=== PATIENT | female | born 1965 | race Caucasian/White ===

== ENCOUNTER → 2017-04-21 | Outpatient (CLI) | payer BC ==
[~2017-04-21] MED LIST: AC500T PO; ALBU17AE3 IH; ALBU8.5H4 IH; ALPR1T PO; ASP325T PO; ASP81TEC PO; ASPRIN; CILO100T PO; CIPR500T78 PO; CITA10TA PO; CYCL10TA9 PO; DAILY MULTIVIT1 EAC4 PO; DULO30CA PO; ENXP40I.4 SQ; FENO145T2 PO; FERR325C PO; FLUT1DIS26 IH; GBPN600T PO; GUAI100S PO; GUAI10SY4 PO; HYDR-2890 PO; HYDR-3583 PO; HYDR-91 PO; HYDR12.56 PO; IBP600T1 PO; IBUP-30 PO; IRON45TA2 PO; LVT.15T PO; MELO-195 PO; MELOXICAN PO; MULT-974 PO; NF-LOVAZAC PO; NRT25C PO; OSLT75CRX PO; OXC20TCR PO; OXYC20TA4 PO; POTA10CA43 PO; POTA10TA36 PO; PRM25T PO; PROP10TA8 PO; TIZA2CAP7 PO; TOPI50TA2 PO; TRAM50TA2 PO; ZLP10T PO; ZOLP10TA; ZOLP10TA5 PO
--- NOTE | 2017-04-21 12:19 | Diagnostic Imaging Report ---
INDICATION: Left foot injury. AP and lateral views of the left foot show no fracture, dislocation, or other acute abnormalities. IMPRESSION: Negative left foot. Dictated by: Dictated on workstation # [id number]
== END ==
LOC: RAD 11:48
DX: M79.672 Pain in left foot (principal)
CPT/HCPCS: 73620

== ENCOUNTER → 2017-04-21 | Outpatient (CLI) | payer BC ==
--- NOTE | 2017-04-21 12:48 | Diagnostic Imaging Report ---
INDICATION: Left ankle pain. 3 views of the left ankle show no fracture, dislocation, or other acute abnormalities. IMPRESSION: Negative left ankle. Dictated by: Dictated on workstation # [id number]
== END ==
LOC: RAD 10:31
DX: M25.572 Pain in left ankle and joints of left foot (principal)
CPT/HCPCS: 73610

== ENCOUNTER → 2017-05-19 | Outpatient (CLI) | payer BC ==
--- NOTE | 2017-05-19 20:50 | Diagnostic Imaging Report ---
Bilateral CC and right MLO projections diagnostic mammogram. INDICATION: Area of fullness in the central lateral aspect of the right breast and in the axillary region. The current study was also evaluated with a Computer Aided Detection (CAD) system. COMPARISON: 06/25/13. FINDINGS: There are bilateral retropectoral implants seen in a symmetric fashion. There is no mass, architectural distortion or suspicious cluster of calcification seen. IMPRESSION: No mammographic evidence of malignancy. Ultrasound evaluation pending. ACR BI-RADS Category 0: Incomplete. (Needs additional imaging evaluation). Result letter will be mailed to the patient. Note: At least 10% of breast cancer is not imaged by mammography. Dictated by: Dictated on workstation # [id number]
--- NOTE | 2017-05-19 22:04 | Diagnostic Imaging Report ---
Right breast ultrasound. INDICATION: Thickening in the axilla and outer aspect of the right breast. FINDINGS: The area of thickening in the right breast at 9 o'clock zone, 3 cm from the nipple area corresponds to a hypoechoic nonspecific lesion with circumscribed margins and no internal vascularity seen measuring 8 x 3 x 7 mm abutting the outer surface of the implant. Etiology is uncertain. However, the overall appearance and smooth margins is in favor of a benign etiology and could possibly related to area of scarring after the mastectomy and implant placement. The area of thickening in the axilla was also scanned with no underlying abnormality. IMPRESSION: Nonspecific 8 mm smoothly marginated hyperechoic lesion corresponding to the palpable area in the outer aspect of the right breast is favored to be benign, possibly a postsurgical scar. Followup with ultrasound in 6 months is recommended to ensure no adverse development. ACR BI-RADS Category 3: Probably benign findings. Dictated by: Dictated on workstation # [id number]
== END ==
LOC: RAD 08:11
DX: N63.11 Unspecified lump in the right breast, upper outer quadrant (principal)
CPT/HCPCS: 77066

== ENCOUNTER → 2017-06-09 | Outpatient (CLI) | payer BC ==
[~2017-06-09] MED LIST changes: +CATHETER FLUSH 10 ML SYR IV PRN; +IOHEXOL 350 MG/ML 100 ML (OMNIPAQUE 350) VIAL IV ONE; +NS 100 ML (IVPB) BAG IV ONE
--- NOTE | 2017-06-09 12:50 | Diagnostic Imaging Report ---
PROCEDURE: CT abdomen and pelvis with contrast. TECHNIQUE: Multiple contiguous axial images were obtained through the abdomen and pelvis after administration of intravenous contrast. INDICATION: Hematuria. Pelvic pain. 100 mL of Omnipaque 350 is administered intravenously. FINDINGS: The lung bases appear clear. Breast implants are also partially visualized. The liver demonstrates diffuse steatosis with no focal mass identified. The spleen is not enlarged. Cholecystectomy clips are seen. The adrenal glands and the pancreas appear unremarkable. The kidneys have symmetric enhancement and excretion. There is no hydronephrosis. The urinary bladder appears unremarkable. There is no significant free fluid or fluid collection in the abdomen or pelvis noted. There is suggestion of hysterectomy. Correlate with surgical history. There are prominent densities in the urethra. These could relate to a urethral diverticula containing stones. The appearance is similar to study from 11/29/2012. The abdominal aorta is normal in caliber. No para-aortic significantly enlarged lymph node is seen. No bowel obstruction. A few small diverticula are seen in the sigmoid colon with no evidence of diverticulitis. The appendix is not seen on this exam. There is a tiny indirect left-sided fat-containing inguinal hernia. The osseous structures appear grossly unremarkable. IMPRESSION: 1. High-density material is surrounding the urethra similar to 2013 exam. These could relate to stones within urethral diverticulum or possibly sequela to prior injury or surgery to the urethra. Correlate with history. 2. Tiny fat-containing indirect left inguinal hernia. Dictated by: Dictated on workstation # [id number]
== END ==
LOC: RAD 10:06
DX: N36.9 Urethral disorder, unspecified (principal); K40.90 Unilateral inguinal hernia, without obstruction or gangrene, not specified as recurrent
CPT/HCPCS: 74177

== ENCOUNTER → 2017-06-28 | Outpatient (CLI) | payer BC ==
[~2017-06-28] MED LIST changes: -CATHETER FLUSH 10 ML SYR IV PRN; -IOHEXOL 350 MG/ML 100 ML (OMNIPAQUE 350) VIAL IV ONE; -NS 100 ML (IVPB) BAG IV ONE
--- NOTE | 2017-06-28 13:09 | Diagnostic Imaging Report ---
INDICATION: Left renal calculus. COMPARISON: CT dated 06/09/2017. FINDINGS: Two frontal radiographic views of the abdomen were obtained. Small bowel loops are nondistended. There is no large collection of free intraperitoneal air. No unexpected radiopaque foreign bodies are seen. There are bulky calcifications projecting over the lower pelvis, midline. This corresponds to dystrophic calcifications seen on previously performed CT. Otherwise, no unexpected calculi are identified. Bony structures show no gross acute abnormalities. IMPRESSION: 1. Nonobstructive small bowel gas pattern. Dictated by: Dictated on workstation # [id number]
== END ==
LOC: RAD 12:41
PROVIDERS: ATTEND Urology
DX: N20.0 Calculus of kidney (principal)
CPT/HCPCS: 74000

== ENCOUNTER → 2017-09-25 | Outpatient (CLI) | payer BC ==
--- NOTE | 2017-09-25 16:46 | Diagnostic Imaging Report ---
CLINICAL INDICATION: Patient with cough for past month. EXAM: Chest x-ray PA and lateral views. COMPARISONS: Chest x-ray dated 09/05/2013. FINDINGS: Lungs/pleura: Lungs are clear. There is no pneumothorax. There is no pleural effusion. Mediastinum: Unremarkable. Pulmonary vasculature: Unremarkable. Heart: Unremarkable. Bones/extrathoracic soft tissue: Unremarkable. IMPRESSION: There is no radiographic evidence of acute cardiopulmonary process. Dictated by: Dictated on workstation # [id number]
== END ==
LOC: RAD 15:19
PROVIDERS: ATTEND Nurse Practitioner Family
DX: R05 Cough (principal)
CPT/HCPCS: 71046

== ENCOUNTER → 2017-10-09 | Outpatient (CLI) | payer BC ==
[~2017-10-09] MED LIST changes: +BARIUM SUSPENSION 105% (LIQUID POLIBAR PLUS) 240 ML/DOSE PO ONE; +BARIUM SUSPENSION 60% (LIQUID EZ PAQUE) 240 ML DOSE PO ONE
--- NOTE | 2017-10-09 12:48 | Diagnostic Imaging Report ---
INDICATION: Gastroesophageal reflux disease. TECHNIQUE: The patient ingested effervescent crystals as well as thin and thick barium and imaging of the esophagus, stomach, and proximal small bowel was performed. 1 minute and 50 seconds of fluoroscopy time was utilized. FINDINGS: The preprocedure chest is unremarkable. The heart size is normal. The lungs are clear. The esophagus has a smooth contour. No mass or stricture is identified. No gastroesophageal reflux is demonstrated. No significant hiatal hernia is seen. There is some mild generalized esophageal dysmotility. The stomach has a normal configuration. There is prompt emptying into the small bowel. The duodenal bulb is without deformity. IMPRESSION: Generalized esophageal dysmotility. No other significant abnormality is seen. Dictated by: Dictated on workstation # [id number]
== END ==
LOC: RAD 10:51
DX: K21.9 Gastro-esophageal reflux disease without esophagitis (principal); K22.4 Dyskinesia of esophagus
CPT/HCPCS: 74240

== ENCOUNTER → 2017-11-23 | Outpatient (CLI) | payer BC ==
[~2017-11-23] MED LIST changes: -BARIUM SUSPENSION 105% (LIQUID POLIBAR PLUS) 240 ML/DOSE PO ONE; -BARIUM SUSPENSION 60% (LIQUID EZ PAQUE) 240 ML DOSE PO ONE
--- NOTE | 2017-11-23 12:22 | Diagnostic Imaging Report ---
INDICATION: Rash on the right breast. Comparison is made with prior exam from 05/19/2017 and 06/25/2013. The current study was also evaluated with a Computer Aided Detection (CAD) system. Subpectoral right breast implant is noted. Implant contours remain smooth. No definite evidence of extracapsular rupture is seen. No mass or malignant appearing microcalcifications are identified. IMPRESSION: BI-RADS zero Stable right mammogram. No suspicious abnormality is seen. Patient is scheduled to undergo right breast ultrasound to further evaluate previously noted nodule at the 9 o'clock location. ACR BI-RADS Category 0: Incomplete. (Needs additional imaging evaluation). Result letter will be mailed to the patient. Note: At least 10% of breast cancer is not imaged by mammography. Dictated by: Dictated on workstation # [id number]
--- NOTE | 2017-11-23 13:45 | Diagnostic Imaging Report ---
INDICATION: Right breast lump. Patient presents for six-month followup. Correlation is made with prior exam from 05/19/2017. Sonographic interrogation of the 9 o'clock location of the right breast, 3 cm from the nipple was performed. The mixed echogenicity ovoid area adjacent to the implant remains stable at 7 mm x 3 mm x 8 mm. This remains indeterminate but most likely represents scarring. No suspicious features are seen. IMPRESSION: BI-RADS category 2 Stable right breast ultrasound. Patient should return in 6 months for bilateral screening mammography. ACR BI-RADS Category 2: Benign findings. Dictated by: Dictated on workstation # [id number]
== END ==
LOC: RAD 07:54
DX: N63.11 Unspecified lump in the right breast, upper outer quadrant (principal); N64.59 Other signs and symptoms in breast; Z98.82 Breast implant status

== ENCOUNTER 2018-06-20 05:52 | Outpatient (CLI) | payer BC ==
[~2018-06-20] VITALS: Ht 157.5 cm; Wt 76.7 kg
[2018-06-20] MEDS ORDERED: ZOLP10TA5 PO (15:05)
[2018-06-20] MEDS ORDERED: THYR60TA2 PO (15:05)
[2018-06-20] MEDS ORDERED: FLUO40CA PO (15:05)
[2018-06-20] MEDS ORDERED: ASPI-999 PO (15:05)
[2018-06-20] MEDS ORDERED: FENO200C PO (15:05)
[2018-06-20] MEDS ORDERED: ROSU10TA27 PO (15:05)
[2018-06-20] MEDS ORDERED: ALPR1TAB7 PO (15:05)
[2018-06-20] MEDS ORDERED: ACHD5005 PO (15:05)
[2018-06-20] MEDS ORDERED: BACL20TA PO (15:05)
[2018-06-20] MEDS ORDERED: TOPI100T11 PO (15:05)
== END 2018-06-20 15:07 | disposition home or self-care (01) ==
LOC: PREOP 05:52
PROVIDERS: ATTEND Surgery
DX: Z01.818 Encounter for other preprocedural examination (principal)

== ENCOUNTER 2018-06-27 09:01 | Day surgery (SDC) | payer BC ==
[~2018-06-27] VITALS: Ht 157.5 cm; Wt 76.7 kg
[~2018-06-27 09:01] MED LIST changes: +ACHD5005 PO; +ALPR1TAB7 PO; +ASPI-999 PO; +BACL20TA PO; +FENO200C PO; +FLUO40CA PO; +ROSU10TA27 PO; +THYR60TA2 PO; +TOPI100T11 PO
--- OUTSIDE RECORDS SUMMARY | 2018-06-27 09:07 | XMS REPORT | Continuity of Care Document ---
Author Author [facility] Organization [facility] Address Unknown Phone Unavailable Allergies Active Description Code Type Severity Reaction Onset Reported/Identified Relationship to Patient Clinical Status Yes cephalexin [id number] Drug Allergy Unknown N/A 11/15/2005 Yes erythromycin base [id number] Drug Allergy Unknown N/A 11/15/2005 Yes latex [id number] Drug Allergy Unknown N/A 06/20/2018 Yes Penicillins [id number] Drug Allergy Unknown RASH 06/20/2018 Medications There is no data. Problems Date Dx Coded Attending Type Code Diagnosis Diagnosed By 01/11/2010 Ot 041.7 PSEUDOMONAS INFECT NOS 01/11/2010 Ot 444.22 LOWER EXTREMITY EMBOLISM 01/11/2010 Ot 909.3 LATE EFF SURG /MED COMPL 01/11/2010 Ot 998.51 INFECTED POSTOP SEROMA 01/11/2010 Ot E849.7 ACCID IN RESIDENT INSTIT 01/11/2010 Ot E870.0 ACC CUT/HEM IN SURGERY 01/11/2010 Ot V43.65 KNEE JOINT REPLACEMENT STATUS 01/21/2010 Ot 041.7 01/21/2010 Ot 780.60 02/08/2010 Ot 444.22 02/08/2010 Ot 997.2 02/27/2010 Ot 285.1 AC POSTHEMORRHAG ANEMIA 02/27/2010 Ot 493.90 ASTHMA, UNSPECIFIED 02/27/2010 Ot 715.96 OSTEOARTHROS NOS-L/LEG 02/27/2010 Ot 996.74 OTH COMPL DUE TO OTH VASCULAR DEVICE,IMP 05/20/2010 Ot V43.65 05/20/2010 Ot V54.81 05/20/2010 Ot V57.1 06/09/2010 Ot 444.22 06/09/2010 Ot 493.90 06/09/2010 Ot 716.90 06/09/2010 Ot 729.1 06/09/2010 Ot V16.3 06/09/2010 Ot V16.41 06/09/2010 Ot V58.61 06/09/2010 Ot V58.69 10/20/2010 Ot 444.22 LOWER EXTREMITY EMBOLISM 10/20/2010 Ot 493.90 ASTHMA, UNSPECIFIED 10/20/2010 Ot 716.90 ARTHROPATHY NOS-UNSPEC 10/20/2010 Ot 729.1 MYALGIA AND MYOSITIS NOS 10/20/2010 Ot V16.3 FAMILY HX- BREAST MALIG 10/20/2010 Ot V16.41 FAM HX-MAL NEOP-OVARY 10/20/2010 Ot V58.61 ANTICOAGULANTS,LT,CURRENT USE 10/20/2010 Ot V58.69 OTH MED,LT, CURRENT USE 09/14/2011 Ot 285.9 ANEMIA NOS 09/14/2011 Ot V58.61 ANTICOAGULANTS,LT,CURRENT USE 02/07/2012 Ot 285.9 ANEMIA NOS 02/07/2012 Ot V58.61 ANTICOAGULANTS,LT,CURRENT USE 05/08/2012 Ot 285.9 ANEMIA NOS 05/08/2012 Ot V16.3 FAMILY HX- BREAST MALIG 05/08/2012 Ot V16.41 FAM HX-MAL NEOP-OVARY 05/08/2012 Ot V58.61 ANTICOAGULANTS,LT,CURRENT USE 04/26/2013 SASCHA ABERNATHY, VINOD Bynum Ot 368.2 DIPLOPIA 04/26/2013 VINOD CAICEDO MD Ot 780.4 DIZZINESS AND GIDDINESS 05/21/2013 NELLIE BOYER MD Ot 723.0 CERVICAL SPINAL STENOSIS 05/21/2013 NELLIE BOYER MD Ot 724.1 PAIN IN THORACIC SPINE 05/21/2013 NELLIE BOYER MD Ot 724.2 LUMBAGO 05/21/2013 NELLIE BOYER MD Ot V43.65 KNEE JOINT REPLACEMENT STATUS 05/21/2013 NELLIE BOYER MD Ot V57.1 PHYSICAL THERAPY NEC 09/08/2013 NELLIE BOYER MD Ot 276.8 HYPOPOTASSEMIA 09/08/2013 NELLIE BOYER MD Ot 285.9 ANEMIA NOS 09/08/2013 NELLIE BOYER MD Ot 487.1 FLU W RESP MANIFEST NEC 09/08/2013 NELLIE BOYER MD Ot V03.82 PROPHYLACTIC VACC AGAINST STREPTOCOCCUS 09/16/2014 Ot V76.12 09/16/2014 Ot 440.20 09/16/2014 Ot 440.4 09/16/2014 Ot V72.63 09/16/2014 Ot V72.81 09/16/2014 Ot V74.8 09/16/2014 Ot 285.9 09/16/2014 Ot V58.61 09/16/2014 Ot 444.22 09/16/2014 Ot 493.90 09/16/2014 Ot 716.90 09/16/2014 Ot 729.1 09/16/2014 Ot V16.3 09/16/2014 Ot V16.41 09/16/2014 Ot V58.61 09/16/2014 Ot 996.74 09/16/2014 Ot 444.22 09/16/2014 Ot 493.90 09/16/2014 Ot 716.90 09/16/2014 Ot 729.1 09/16/2014 Ot V16.3 09/16/2014 Ot V16.41 09/16/2014 Ot V58.61 09/16/2014 Ot V58.69 09/16/2014 Ot V76.12 09/16/2014 Ot 288.50 09/16/2014 Ot 444.22 09/16/2014 Ot 493.90 09/16/2014 Ot 716.90 09/16/2014 Ot 729.1 09/16/2014 Ot V16.3 09/16/2014 Ot V16.41 09/16/2014 Ot V58.61 09/16/2014 Ot V58.69 09/16/2014 Ot 793.89 09/16/2014 Ot V16.3 09/16/2014 Ot 611.72 09/16/2014 Ot 611.72 09/16/2014 Ot V72.63 09/16/2014 Ot V72.81 09/16/2014 Ot V74.8 09/16/2014 Ot 729.5 09/16/2014 Ot V12.51 09/16/2014 Ot V16.3 09/16/2014 Ot V76.12 09/16/2014 Ot 793.80 09/16/2014 Ot V16.3 09/16/2014 Ot 286.9 09/16/2014 Ot 443.9 09/16/2014 Ot V16.3 09/16/2014 Ot V58.66 09/16/2014 Ot V58.69 09/16/2014 Ot 443.9 09/16/2014 Ot 729.81 09/16/2014 Ot 782.3 09/16/2014 Ot 285.9 09/16/2014 Ot V16.3 09/16/2014 Ot V16.41 09/16/2014 Ot V58.61 09/16/2014 Ot 786.50 09/16/2014 Ot 789.06 09/16/2014 Ot 786.50 09/16/2014 Ot 789.06 09/16/2014 Ot V12.51 09/16/2014 Ot V12.71 09/16/2014 Ot V58.69 09/16/2014 Ot 789.05 09/16/2014 MERLIN ABERNATHY, NELLIE J Ot 244.9 09/16/2014 MERLIN ABERNATHY, NELLIE J Ot 336.9 09/16/2014 MERLIN ABERNATHY, [facility] Ot 722.10 09/16/2014 MERLIN ABERNATHY, [facility] Ot 722.11 09/16/2014 MERLIN ABERNATHY, [facility] Ot 793.89 09/16/2014 MERLIN ABERNATHY, [facility] Ot V16.3 09/16/2014 MERLIN ABERNATHY, NELLIE J Ot 244.9 09/25/2014 MERLIN ABERNATHY, [facility] Ot 440.20 09/25/2014 MERLIN ABERNATHY, [facility] Ot 440.4 09/25/2014 MERLIN ABERNATHY, [facility] Ot 729.5 09/25/2014 MERLIN ABERNATYH, [facility] Ot V12.51 10/02/2014 MERLIN ABERNATHY, [facility] Ot 729.5 10/02/2014 MERLIN ABERNATHY, [facility] Ot V12.51 10/09/2014 MERLIN ABERNATHY, [facility] Ot 440.20 10/09/2014 MERLIN ABERNATHY, [facility] Ot 440.4 10/09/2014 MERLIN ABERNATHY, [facility] Ot 729.5 10/09/2014 MERLIN ABERNATHY, NELLIE Lan Ot V12.51 11/18/2015 Ot 444.22 11/18/2015 Ot 493.90 11/18/2015 Ot 716.90 11/18/2015 Ot 729.1 11/18/2015 Ot V16.3 11/18/2015 Ot V16.41 11/18/2015 Ot V58.61 11/18/2015 Ot V58.69 11/18/2015 Ot V76.12 11/18/2015 Ot 288.50 11/18/2015 Ot 444.22 11/18/2015 Ot 493.90 11/18/2015 Ot 716.90 11/18/2015 Ot 729.1 11/18/2015 Ot V16.3 11/18/2015 Ot V16.41 11/18/2015 Ot V58.61 11/18/2015 Ot V58.69 11/18/2015 Ot 793.89 11/18/2015 Ot V16.3 11/18/2015 Ot 611.72 11/18/2015 Ot 611.72 11/18/2015 Ot V72.63 11/18/2015 Ot V72.81 11/18/2015 Ot V74.8 11/18/2015 Ot 729.5 11/18/2015 Ot V12.51 11/18/2015 Ot V16.3 11/18/2015 Ot V76.12 11/18/2015 Ot 793.80 11/18/2015 Ot V16.3 11/18/2015 Ot 286.9 11/18/2015 Ot 443.9 11/18/2015 Ot V16.3 11/18/2015 Ot V58.66 11/18/2015 Ot V58.69 11/18/2015 Ot 443.9 11/18/2015 Ot 729.81 11/18/2015 Ot 782.3 11/18/2015 Ot 285.9 11/18/2015 Ot V16.3 11/18/2015 Ot V16.41 11/18/2015 Ot V58.61 11/18/2015 Ot 786.50 11/18/2015 Ot 789.06 11/18/2015 Ot 786.50 11/18/2015 Ot 789.06 11/18/2015 Ot V12.51 11/18/2015 Ot V12.71 11/18/2015 Ot V58.69 11/18/2015 Ot 789.05 11/18/2015 MERLIN ABERNATHY, NELLIE [place] Ot 244.9 11/18/2015 MERLIN ABERNATHY, NELLIE [place] Ot 336.9 11/18/2015 MERLIN ABERNATHY, NELLIE [place] Ot 722.10 11/18/2015 MERLIN ABERNATHY, NELLIE [place] Ot 722.11 11/18/2015 MERLIN ABERNATHY, NELLIE [place] Ot 793.89 11/18/2015 MERLIN ABERNATHY, NELLIE [place] Ot V16.3 11/18/2015 MERLIN ABERNATHY, NELLIE [place] Ot 244.9 11/18/2015 MERLIN ABERNATHY, NELLIE [place] Ot 729.5 11/18/2015 MERLIN ABERNATHY, NELLIE [place] Ot V12.51 11/18/2015 MERLIN ABERNATHY, NELLIE [place] Ot 440.20 11/18/2015 MERLIN ABERNATHY, NELLIE [place] Ot 440.4 11/18/2015 MERLIN ABERNATHY, NELLIE [place] Ot 729.5 11/18/2015 MERLIN ABERNATHY, NELLIE [place] Ot V12.51 11/24/2015 Ot 444.22 11/24/2015 Ot 493.90 11/24/2015 Ot 716.90 11/24/2015 Ot 729.1 11/24/2015 Ot V16.3 11/24/2015 Ot V16.41 11/24/2015 Ot V58.61 11/24/2015 Ot V58.69 11/24/2015 Ot V76.12 11/24/2015 Ot 288.50 11/24/2015 Ot 444.22 11/24/2015 Ot 493.90 11/24/2015 Ot 716.90 11/24/2015 Ot 729.1 11/24/2015 Ot V16.3 11/24/2015 Ot V16.41 11/24/2015 Ot V58.61 11/24/2015 Ot V58.69 11/24/2015 Ot 793.89 11/24/2015 Ot V16.3 11/24/2015 Ot 611.72 11/24/2015 Ot 611.72 11/24/2015 Ot V72.63 11/24/2015 Ot V72.81 11/24/2015 Ot V74.8 11/24/2015 Ot 729.5 11/24/2015 Ot V12.51 11/24/2015 Ot V16.3 11/24/2015 Ot V76.12 11/24/2015 Ot 793.80 11/24/2015 Ot V16.3 11/24/2015 Ot 286.9 11/24/2015 Ot 443.9 11/24/2015 Ot V16.3 11/24/2015 Ot V58.66 11/24/2015 Ot V58.69 11/24/2015 Ot 443.9 11/24/2015 Ot 729.81 11/24/2015 Ot 782.3 11/24/2015 Ot 285.9 11/24/2015 Ot V16.3 11/24/2015 Ot V16.41 11/24/2015 Ot V58.61 11/24/2015 Ot 786.50 11/24/2015 Ot 789.06 11/24/2015 Ot 786.50 11/24/2015 Ot 789.06 11/24/2015 Ot V12.51 11/24/2015 Ot V12.71 11/24/2015 Ot V58.69 11/24/2015 Ot 789.05 11/24/2015 MERLIN ABERNATHY, NELLIE [place] Ot 244.9 11/24/2015 MERLIN ABERNATHY, NELLIE [place] Ot 336.9 11/24/2015 MERLIN ABERNATHY, NELLIE [place] Ot 722.10 11/24/2015 MERLIN ABERNATHY, NELLIE [place] Ot 722.11 11/24/2015 MERLIN ABERNATHY, NELLIE [place] Ot 793.89 11/24/2015 MERLIN ABERNATHY, NELLIE [place] Ot V16.3 11/24/2015 MERLIN ABERNATHY, NELLIE [place] Ot 244.9 11/24/2015 MERLIN ABERNATHY, NELLIE [place] Ot 729.5 11/24/2015 MERLIN ABERNATHY, NELLIE [place] Ot V12.51 11/24/2015 MERLIN ABERNATHY, NELLIE [place] Ot 440.20 11/24/2015 MERLIN ABERNATHY, NELLIE [place] Ot 440.4 11/24/2015 MERLIN ABERNATHY, NELLIE [place] Ot 729.5 11/24/2015 MERLIN ABERNATHY, NELLIE [place] Ot V12.51 01/07/2016 Ot 444.22 LOWER EXTREMITY EMBOLISM 01/07/2016 Ot 493.90 ASTHMA, UNSPECIFIED 01/07/2016 Ot 716.90 ARTHROPATHY NOS-UNSPEC 01/07/2016 Ot 729.1 MYALGIA AND MYOSITIS NOS 01/07/2016 Ot V16.3 FAMILY HX- BREAST MALIG 01/07/2016 Ot V16.41 FAM HX-MAL NEOP-OVARY 01/07/2016 Ot V58.61 ANTICOAGULANTS,LT,CURRENT USE 01/07/2016 Ot V58.69 OTH MED,LT, CURRENT USE 01/07/2016 Ot V76.12 OTH SCREEN MAMMO-MALIGN NEOPLASM OF PRANEETH 01/07/2016 Ot 288.50 LEUKOCYTOPENIA, UNSPECIFIED 01/07/2016 Ot 444.22 LOWER EXTREMITY EMBOLISM 01/07/2016 Ot 493.90 ASTHMA, UNSPECIFIED 01/07/2016 Ot 716.90 ARTHROPATHY NOS-UNSPEC 01/07/2016 Ot 729.1 MYALGIA AND MYOSITIS NOS 01/07/2016 Ot V16.3 FAMILY HX- BREAST MALIG 01/07/2016 Ot V16.41 FAM HX-MAL NEOP-OVARY 01/07/2016 Ot V58.61 ANTICOAGULANTS,LT,CURRENT USE 01/07/2016 Ot V58.69 OTH MED,LT, CURRENT USE 01/07/2016 Ot 793.89 OTH (ABN) FINDINGS ON RADIOLOGICAL EXAMI 01/07/2016 Ot V16.3 FAMILY HX- BREAST MALIG 01/07/2016 Ot 611.72 LUMP OR MASS IN BREAST 01/07/2016 Ot 611.72 LUMP OR MASS IN BREAST 01/07/2016 Ot V72.63 PRE- PROCEDURAL LABORATORY EXAMINATION 01/07/2016 Ot V72.81 EXAM-PRE- OPERATIVE CARDIOVASCULAR 01/07/2016 Ot V74.8 SCREEN- BACTERIAL DIS NEC 01/07/2016 Ot 729.5 PAIN IN LIMB 01/07/2016 Ot V12.51 HX-VENOUS THROMBOSIS EMBOLISM 01/07/2016 Ot V16.3 FAMILY HX- BREAST MALIG 01/07/2016 Ot V76.12 OTH SCREEN MAMMO-MALIGN NEOPLASM OF PRANEETH 01/07/2016 Ot 793.80 UNSPEC ABNORMAL MAMMOGRAM 01/07/2016 Ot V16.3 FAMILY HX- BREAST MALIG 01/07/2016 Ot 286.9 COAGULAT DEFECT NEC/NOS 01/07/2016 Ot 443.9 PERIPH VASCULAR DIS NOS 01/07/2016 Ot V16.3 FAMILY HX- BREAST MALIG 01/07/2016 Ot V58.66 LONG-TERM ( CURRENT) USE OF ASPIRIN 01/07/2016 Ot V58.69 OTH MED,LT, CURRENT USE 01/07/2016 Ot 443.9 PERIPH VASCULAR DIS NOS 01/07/2016 Ot 729.81 SWELLING OF LIMB 01/07/2016 Ot 782.3 EDEMA 01/07/2016 Ot 285.9 ANEMIA NOS 01/07/2016 Ot V16.3 FAMILY HX- BREAST MALIG 01/07/2016 Ot V16.41 FAM HX-MAL NEOP-OVARY 01/07/2016 Ot V58.61 ANTICOAGULANTS,LT,CURRENT USE 01/07/2016 Ot 786.50 CHEST PAIN NOS 01/07/2016 Ot 789.06 ABDOMINAL PAIN, EPIGASTRIC 01/07/2016 Ot 786.50 CHEST PAIN NOS 01/07/2016 Ot 789.06 ABDOMINAL PAIN, EPIGASTRIC 01/07/2016 Ot V12.51 HX-VENOUS THROMBOSIS EMBOLISM 01/07/2016 Ot V12.71 PERSONAL HISTORY OF PEPTIC ULCER DISEASE 01/07/2016 Ot V58.69 OTH MED,LT, CURRENT USE 01/07/2016 Ot 789.05 ABDOMINAL PAIN, PERIUMBILIC 01/07/2016 NELLIE BOYER MD Ot 244.9 HYPOTHYROIDISM NOS 01/07/2016 NELLIE BOYER MD Ot 336.9 SPINAL CORD DISEASE NOS 01/07/2016 NELLIE BOYER MD Ot 722.10 LUMBAR DISC DISPLACEMENT 01/07/2016 NELLIE BOYER MD Ot 722.11 THORACIC DISC DISPLACMNT 01/07/2016 NELLIE BOYER MD Ot 793.89 OTH (ABN) FINDINGS ON RADIOLOGICAL EXAMI 01/07/2016 NELLIE BOYER MD Ot V16.3 FAMILY HX-BREAST MALIG 01/07/2016 NELLIE BOYER MD Ot 244.9 HYPOTHYROIDISM NOS 01/07/2016 NELLIE BOYER MD Ot 729.5 PAIN IN LIMB 01/07/2016 NELLIE BOYER MD Ot V12.51 HX-VENOUS THROMBOSIS EMBOLISM 01/07/2016 NELLIE BOYER MD Ot 440.20 ATHEROSCLEROSIS [place] ARTERIES EXTREMIT 01/07/2016 NELLIE BOYER MD Ot 440.4 CHRONIC TOTAL OCCLUSION OF ARTERY OF THE 01/07/2016 NELLIE BOYER MD Ot 729.5 PAIN IN LIMB 01/07/2016 NELLIE BOYER MD Ot V12.51 HX-VENOUS THROMBOSIS EMBOLISM 09/16/2016 Ot 288.50 LEUKOCYTOPENIA, UNSPECIFIED 09/16/2016 Ot 444.22 LOWER EXTREMITY EMBOLISM 09/16/2016 Ot 493.90 ASTHMA, UNSPECIFIED 09/16/2016 Ot 716.90 ARTHROPATHY NOS-UNSPEC 09/16/2016 Ot 729.1 MYALGIA AND MYOSITIS NOS 09/16/2016 Ot V16.3 FAMILY HX- BREAST MALIG 09/16/2016 Ot V16.41 FAM HX-MAL NEOP-OVARY 09/16/2016 Ot V58.61 ANTICOAGULANTS,LT,CURRENT USE 09/16/2016 Ot V58.69 OTH MED,LT, CURRENT USE 09/16/2016 Ot 793.89 OTH (ABN) FINDINGS ON RADIOLOGICAL EXAMI 09/16/2016 Ot V16.3 FAMILY HX- BREAST MALIG 09/16/2016 Ot 611.72 LUMP OR MASS IN BREAST 09/16/2016 Ot 611.72 LUMP OR MASS IN BREAST 09/16/2016 Ot V72.63 PRE- PROCEDURAL LABORATORY EXAMINATION 09/16/2016 Ot V72.81 EXAM-PRE- OPERATIVE CARDIOVASCULAR 09/16/2016 Ot V74.8 SCREEN- BACTERIAL DIS NEC 09/16/2016 Ot 729.5 PAIN IN LIMB 09/16/2016 Ot V12.51 HX-VENOUS THROMBOSIS EMBOLISM 09/16/2016 Ot V16.3 FAMILY HX- BREAST MALIG 09/16/2016 Ot V76.12 OTH SCREEN MAMMO-MALIGN NEOPLASM OF PRANEETH 09/16/2016 Ot 793.80 UNSPEC ABNORMAL MAMMOGRAM 09/16/2016 Ot V16.3 FAMILY HX- BREAST MALIG 09/16/2016 Ot 286.9 COAGULAT DEFECT NEC/NOS 09/16/2016 Ot 443.9 PERIPH VASCULAR DIS NOS 09/16/2016 Ot V16.3 FAMILY HX- BREAST MALIG 09/16/2016 Ot V58.66 LONG-TERM ( CURRENT) USE OF ASPIRIN 09/16/2016 Ot V58.69 OTH MED,LT, CURRENT USE 09/16/2016 Ot 443.9 PERIPH VASCULAR DIS NOS 09/16/2016 Ot 729.81 SWELLING OF LIMB 09/16/2016 Ot 782.3 EDEMA 09/16/2016 Ot 285.9 ANEMIA NOS 09/16/2016 Ot V16.3 FAMILY HX- BREAST MALIG 09/16/2016 Ot V16.41 FAM HX-MAL NEOP-OVARY 09/16/2016 Ot V58.61 ANTICOAGULANTS,LT,CURRENT USE 09/16/2016 Ot 786.50 CHEST PAIN NOS 09/16/2016 Ot 789.06 ABDOMINAL PAIN, EPIGASTRIC 09/16/2016 Ot 786.50 CHEST PAIN NOS 09/16/2016 Ot 789.06 ABDOMINAL PAIN, EPIGASTRIC 09/16/2016 Ot V12.51 HX-VENOUS THROMBOSIS EMBOLISM 09/16/2016 Ot V12.71 PERSONAL HISTORY OF PEPTIC ULCER DISEASE 09/16/2016 Ot V58.69 OTH MED,LT, CURRENT USE 09/16/2016 Ot 789.05 ABDOMINAL PAIN, PERIUMBILIC 09/16/2016 MERLIN ABERNATHY, NELLIE [place] Ot 244.9 HYPOTHYROIDISM NOS 09/16/2016 MERLIN ABERNATHY, NELLIE [place] Ot 336.9 SPINAL CORD DISEASE NOS 09/16/2016 NELLIE BOYER MD Ot 722.10 LUMBAR DISC DISPLACEMENT 09/16/2016 NELLIE BOYER MD Ot 722.11 THORACIC DISC DISPLACMNT 09/16/2016 NELLIE BOYER MD Ot 793.89 OTH (ABN) FINDINGS ON RADIOLOGICAL EXAMI 09/16/2016 NELLIE BOYER MD Ot V16.3 FAMILY HX-BREAST MALIG 09/16/2016 NELLIE BOYER MD Ot 244.9 HYPOTHYROIDISM NOS 09/16/2016 NELLIE BOYER MD Ot 729.5 PAIN IN LIMB 09/16/2016 NELLIE BOYER MD Ot V12.51 HX-VENOUS THROMBOSIS EMBOLISM 09/16/2016 NELLIE BOYER MD Ot 440.20 ATHEROSCLEROSIS [place] ARTERIES EXTREMIT 09/16/2016 NELLIE BOYER MD Ot 440.4 CHRONIC TOTAL OCCLUSION OF ARTERY OF THE 09/16/2016 NELLIE BOYER MD Ot 729.5 PAIN IN LIMB 09/16/2016 NELLIE BOYER MD Ot V12.51 HX-VENOUS THROMBOSIS EMBOLISM 04/24/2017 AVIS ABERNATHY, MARIA VICTORIA Zelaya Ot M79.672 PAIN IN LEFT FOOT 04/27/2017 AVIS ABERNATHY, MARIA VICTORIA Zelaya Ot M79.672 PAIN IN LEFT FOOT 05/04/2017 AVIS ABERNATHY, MARIA VICTORIA Zelaya Ot M25.572 PAIN IN LEFT ANKLE AND JOINTS OF LEFT FO 05/04/2017 MARIA VICTORIA ALBARRAN MD Ot M79.672 PAIN IN LEFT FOOT 05/31/2017 AVIS ABERNATHY, MARIA VICTORIA Zelaya Ot N63.11 UNSPECIFIED LUMP IN THE RIGHT BREAST, UP 06/07/2017 Ot V16.3 FAMILY HX- BREAST MALIG 06/07/2017 Ot V76.12 OTH SCREEN MAMMO-MALIGN NEOPLASM OF PRANEETH 06/07/2017 Ot 793.80 UNSPEC ABNORMAL MAMMOGRAM 06/07/2017 Ot V16.3 FAMILY HX- BREAST MALIG 06/07/2017 Ot 286.9 COAGULAT DEFECT NEC/NOS 06/07/2017 Ot 443.9 PERIPH VASCULAR DIS NOS 06/07/2017 Ot V16.3 FAMILY HX- BREAST MALIG 06/07/2017 Ot V58.66 LONG-TERM ( CURRENT) USE OF ASPIRIN 06/07/2017 Ot V58.69 OTH MED,LT, CURRENT USE 06/07/2017 Ot 443.9 PERIPH VASCULAR DIS NOS 06/07/2017 Ot 729.81 SWELLING OF LIMB 06/07/2017 Ot 782.3 EDEMA 06/07/2017 Ot 285.9 ANEMIA NOS 06/07/2017 Ot V16.3 FAMILY HX- BREAST MALIG 06/07/2017 Ot V16.41 FAM HX-MAL NEOP-OVARY 06/07/2017 Ot V58.61 ANTICOAGULANTS,LT,CURRENT USE 06/07/2017 Ot 786.50 CHEST PAIN NOS 06/07/2017 Ot 789.06 ABDOMINAL PAIN, EPIGASTRIC 06/07/2017 Ot 786.50 CHEST PAIN NOS 06/07/2017 Ot 789.06 ABDOMINAL PAIN, EPIGASTRIC 06/07/2017 Ot V12.51 HX-VENOUS THROMBOSIS EMBOLISM 06/07/2017 Ot V12.71 PERSONAL HISTORY OF PEPTIC ULCER DISEASE 06/07/2017 Ot V58.69 OTH MED,LT, CURRENT USE 06/07/2017 Ot 789.05 ABDOMINAL PAIN, PERIUMBILIC 06/07/2017 MERLIN ABERNATHY, NELLIE [place] Ot 244.9 HYPOTHYROIDISM NOS 06/07/2017 MERLIN ABERNATHY, NELLIE [place] Ot 336.9 SPINAL CORD DISEASE NOS 06/07/2017 NELLIE BOYER MD Ot 722.10 LUMBAR DISC DISPLACEMENT 06/07/2017 NELLIE BOYER MD Ot 722.11 THORACIC DISC DISPLACMNT 06/07/2017 MERLIN ABERNATHY, NELLIE [place] Ot 793.89 OTH (ABN) FINDINGS ON RADIOLOGICAL EXAMI 06/07/2017 NELLIE BOYER MD Ot V16.3 FAMILY HX-BREAST MALIG 06/07/2017 NELLIE BOYER MD Ot 244.9 HYPOTHYROIDISM NOS 06/07/2017 NELLIE BOYER MD Ot 729.5 PAIN IN LIMB 06/07/2017 NELLIE BOYER MD Ot V12.51 HX-VENOUS THROMBOSIS EMBOLISM 06/07/2017 NELLIE BOYER MD Ot 440.20 ATHEROSCLEROSIS [place] ARTERIES EXTREMIT 06/07/2017 NELLIE BOYER MD Ot 440.4 CHRONIC TOTAL OCCLUSION OF ARTERY OF THE 06/07/2017 NELLIE BOYER MD Ot 729.5 PAIN IN LIMB 06/07/2017 NELLIE BOYER MD Ot V12.51 HX-VENOUS THROMBOSIS EMBOLISM 06/07/2017 AVIS ABERNATHY, MARIA VICTORIA Zelaya Ot M25.572 PAIN IN LEFT ANKLE AND JOINTS OF LEFT FO 06/07/2017 MARIA VICTORIA ALBARRAN MD Ot M79.672 PAIN IN LEFT FOOT 06/07/2017 MARIA VICTORIA ALBARRAN MD Ot N63.11 UNSPECIFIED LUMP IN THE RIGHT BREAST, UP 06/12/2017 MARIA VICTORIA ALBARRAN MD Ot K40.90 UNIL INGUINAL HERNIA, W/O OBST OR GANGR, 06/12/2017 MARIA VICTORIA ALBARRAN MD Ot N36.9 URETHRAL DISORDER, UNSPECIFIED 06/22/2017 MARIA VICTORIA ALBARRAN MD Ot K40.90 UNIL INGUINAL HERNIA, W/O OBST OR GANGR, 06/22/2017 MARIA VICTORIA ALBARRAN MD Ot N36.9 URETHRAL DISORDER, UNSPECIFIED 07/13/2017 FREDDIE ABERNATHY, ARTURO Vega Ot N20.0 CALCULUS OF KIDNEY 09/25/2017 NICHOLAS RANDALL N ADAPTIVE PHYSICAL EDUCATOR Ot R05 COUGH 10/06/2017 Ot 285.9 ANEMIA NOS 10/06/2017 Ot V16.3 FAMILY HX- BREAST MALIG 10/06/2017 Ot V16.41 FAM HX-MAL NEOP-OVARY 10/06/2017 Ot V58.61 ANTICOAGULANTS,LT,CURRENT USE 10/06/2017 Ot 786.50 CHEST PAIN NOS 10/06/2017 Ot 789.06 ABDOMINAL PAIN, EPIGASTRIC 10/06/2017 Ot 786.50 CHEST PAIN NOS 10/06/2017 Ot 789.06 ABDOMINAL PAIN, EPIGASTRIC 10/06/2017 Ot V12.51 HX-VENOUS THROMBOSIS EMBOLISM 10/06/2017 Ot V12.71 PERSONAL HISTORY OF PEPTIC ULCER DISEASE 10/06/2017 Ot V58.69 OTH MED,LT, CURRENT USE 10/06/2017 Ot 789.05 ABDOMINAL PAIN, PERIUMBILIC 10/06/2017 MERLIN ABERNATHY, NELLIE [place] Ot 244.9 HYPOTHYROIDISM NOS 10/06/2017 MERLIN ABERNATHY, NELLIE [place] Ot 336.9 SPINAL CORD DISEASE NOS 10/06/2017 MERLIN ABERNATHY, NELLIE [place] Ot 722.10 LUMBAR DISC DISPLACEMENT 10/06/2017 MERLIN ABERNATHY, NELLIE [place] Ot 722.11 THORACIC DISC DISPLACMNT 10/06/2017 MERLIN ABERNATHY, NELLIE [place] Ot 793.89 OTH (ABN) FINDINGS ON RADIOLOGICAL EXAMI 10/06/2017 NELLIE BOYER MD Ot V16.3 FAMILY HX-BREAST MALIG 10/06/2017 NELLIE BOYER MD Ot 244.9 HYPOTHYROIDISM NOS 10/06/2017 MERLIN ABERNATHY, NELLIE [place] Ot 729.5 PAIN IN LIMB 10/06/2017 NELLIE BOYER MD Ot V12.51 HX-VENOUS THROMBOSIS EMBOLISM 10/06/2017 NELLIE BOYER MD Ot 440.20 ATHEROSCLEROSIS [place] ARTERIES EXTREMIT 10/06/2017 NELLIE BOYER MD Ot 440.4 CHRONIC TOTAL OCCLUSION OF ARTERY OF THE 10/06/2017 NELLIE BOYER MD Ot 729.5 PAIN IN LIMB 10/06/2017 NLELIE BOYER MD Ot V12.51 HX-VENOUS THROMBOSIS EMBOLISM 10/06/2017 AVIS ABERNATHY, MARIA VICTORIA Zelaya Ot M25.572 PAIN IN LEFT ANKLE AND JOINTS OF LEFT FO 10/06/2017 MARIA VICTORIA ALBARRAN MD Ot M79.672 PAIN IN LEFT FOOT 10/06/2017 MARIA VICTORIA ALBARRAN MD Ot N63.11 UNSPECIFIED LUMP IN THE RIGHT BREAST, UP 10/06/2017 MARIA VICTORIA ALBARRAN MD Ot K40.90 UNIL INGUINAL HERNIA, W/O OBST OR GANGR, 10/06/2017 MARIA VICTORIA ALBARRAN MD Ot N36.9 URETHRAL DISORDER, UNSPECIFIED 10/06/2017 FREDDIE ABERNATHY, ARTURO Vega Ot N20.0 CALCULUS OF KIDNEY 10/06/2017 NICHOLAS RANDALL N ADAPTIVE PHYSICAL EDUCATOR Ot R05 COUGH 10/09/2017 MARIA VICTORIA ALBARRAN MD Ot K21.9 GASTRO-ESOPHAGEAL REFLUX DISEASE WITHOUT 10/09/2017 MARIA VICTORIA ALBARRAN MD Ot K22.4 DYSKINESIA OF ESOPHAGUS 10/27/2017 MARIA VICTORIA ALBARRAN MD Ot K21.9 GASTRO-ESOPHAGEAL REFLUX DISEASE WITHOUT 10/27/2017 MARIA VICTORIA ALBARRAN MD Ot K22.4 DYSKINESIA OF ESOPHAGUS 11/10/2017 Ot 786.50 CHEST PAIN NOS 11/10/2017 Ot 789.06 ABDOMINAL PAIN, EPIGASTRIC 11/10/2017 Ot 786.50 CHEST PAIN NOS 11/10/2017 Ot 789.06 ABDOMINAL PAIN, EPIGASTRIC 11/10/2017 Ot V12.51 HX-VENOUS THROMBOSIS EMBOLISM 11/10/2017 Ot V12.71 PERSONAL HISTORY OF PEPTIC ULCER DISEASE 11/10/2017 Ot V58.69 OTH MED,LT, CURRENT USE 11/10/2017 Ot 789.05 ABDOMINAL PAIN, PERIUMBILIC 11/10/2017 NELLIE BOYER MD Ot 244.9 HYPOTHYROIDISM NOS 11/10/2017 NELLIE BOYER MD Ot 336.9 SPINAL CORD DISEASE NOS 11/10/2017 NELLIE BOYER MD Ot 722.10 LUMBAR DISC DISPLACEMENT 11/10/2017 NELLIE BOYER MD Ot 722.11 THORACIC DISC DISPLACMNT 11/10/2017 NELLIE BOYER MD Ot 793.89 OTH (ABN) FINDINGS ON RADIOLOGICAL EXAMI 11/10/2017 NELLIE BOYER MD Ot V16.3 FAMILY HX-BREAST MALIG 11/10/2017 NELLIE BOYER MD Ot 244.9 HYPOTHYROIDISM NOS 11/10/2017 NELLIE BOYER MD Ot 729.5 PAIN IN LIMB 11/10/2017 NELLIE BOYER MD Ot V12.51 HX-VENOUS THROMBOSIS EMBOLISM 11/10/2017 NELLIE BOYER MD Ot 440.20 ATHEROSCLEROSIS [place] ARTERIES EXTREMIT 11/10/2017 NELLIE BOYER MD Ot 440.4 CHRONIC TOTAL OCCLUSION OF ARTERY OF THE 11/10/2017 NELLIE BOYER MD Ot 729.5 PAIN IN LIMB 11/10/2017 NELLIE BOYER MD Ot V12.51 HX-VENOUS THROMBOSIS EMBOLISM 11/10/2017 MARIA VICTORIA ALBARRAN MD Ot M25.572 PAIN IN LEFT ANKLE AND JOINTS OF LEFT FO 11/10/2017 MARIA VICTORIA ALBARRAN MD Ot M79.672 PAIN IN LEFT FOOT 11/10/2017 MARIA VICTORIA ALBARRAN MD Ot N63.11 UNSPECIFIED LUMP IN THE RIGHT BREAST, UP 11/10/2017 MARIA VICTORIA ALBARRAN MD Ot K40.90 UNIL INGUINAL HERNIA, W/O OBST OR GANGR, 11/10/2017 MARIA VICTORIA ALBARRAN MD Ot N36.9 URETHRAL DISORDER, UNSPECIFIED 11/10/2017 FREDDIE ABERNATHY, ARTURO Vega Ot N20.0 CALCULUS OF KIDNEY 11/10/2017 NICHOLAS RANDALL N ADAPTIVE PHYSICAL EDUCATOR Ot R05 COUGH 11/10/2017 MARIA VICTORIA ALBARRAN MD Ot K21.9 GASTRO-ESOPHAGEAL REFLUX DISEASE WITHOUT 11/10/2017 MARIA VICTORIA ALBARRAN MD Ot K22.4 DYSKINESIA OF ESOPHAGUS 11/10/2017 Ot 786.50 CHEST PAIN NOS 11/10/2017 Ot 789.06 ABDOMINAL PAIN, EPIGASTRIC 11/10/2017 Ot 786.50 CHEST PAIN NOS 11/10/2017 Ot 789.06 ABDOMINAL PAIN, EPIGASTRIC 11/10/2017 Ot V12.51 HX-VENOUS THROMBOSIS EMBOLISM 11/10/2017 Ot V12.71 PERSONAL HISTORY OF PEPTIC ULCER DISEASE 11/10/2017 Ot V58.69 OTH MED,LT, CURRENT USE 11/10/2017 Ot 789.05 ABDOMINAL PAIN, PERIUMBILIC 11/10/2017 NELLIE OBYER MD Ot 244.9 HYPOTHYROIDISM NOS 11/10/2017 NELLIE BOYER MD Ot 336.9 SPINAL CORD DISEASE NOS 11/10/2017 NELLIE BOYER MD Ot 722.10 LUMBAR DISC DISPLACEMENT 11/10/2017 NELLIE BOYER MD Ot 722.11 THORACIC DISC DISPLACMNT 11/10/2017 NELLIE BOYER MD Ot 793.89 OTH (ABN) FINDINGS ON RADIOLOGICAL EXAMI 11/10/2017 NELLIE BOYER MD Ot V16.3 FAMILY HX-BREAST MALIG 11/10/2017 NELLIE BOYER MD Ot 244.9 HYPOTHYROIDISM NOS 11/10/2017 NELLIE BOYER MD Ot 729.5 PAIN IN LIMB 11/10/2017 NELLIE BOYER MD Ot V12.51 HX-VENOUS THROMBOSIS EMBOLISM 11/10/2017 NELLIE BOYER MD Ot 440.20 ATHEROSCLEROSIS [place] ARTERIES EXTREMIT 11/10/2017 NELLIE BOYER MD Ot 440.4 CHRONIC TOTAL OCCLUSION OF ARTERY OF THE 11/10/2017 NELLIE BOYER MD Ot 729.5 PAIN IN LIMB 11/10/2017 NELLIE BOYER MD Ot V12.51 HX-VENOUS THROMBOSIS EMBOLISM 11/10/2017 AVIS ABERNATHY, MARIA VICTORIA Zelaya Ot M25.572 PAIN IN LEFT ANKLE AND JOINTS OF LEFT FO 11/10/2017 MARIA VICTORIA ALBARRAN MD Ot M79.672 PAIN IN LEFT FOOT 11/10/2017 MARIA VICTORIA ALBARRAN MD Ot N63.11 UNSPECIFIED LUMP IN THE RIGHT BREAST, UP 11/10/2017 MARIA VICTORIA ALBARRAN MD Ot K40.90 UNIL INGUINAL HERNIA, W/O OBST OR GANGR, 11/10/2017 MARIA VICTORIA ALBARRAN MD Ot N36.9 URETHRAL DISORDER, UNSPECIFIED 11/10/2017 FREDDIE ABERNATHY, ARTURO Vega Ot N20.0 CALCULUS OF KIDNEY 11/10/2017 NICHOLAS RANDALL APRN Ot R05 COUGH 11/10/2017 MARIA VICTORIA ALBARRAN MD Ot K21.9 GASTRO-ESOPHAGEAL REFLUX DISEASE WITHOUT 11/10/2017 MARIA VICTORIA ALBARRAN MD Ot K22.4 DYSKINESIA OF ESOPHAGUS 11/23/2017 Ot 786.50 CHEST PAIN NOS 11/23/2017 Ot 789.06 ABDOMINAL PAIN, EPIGASTRIC 11/23/2017 Ot 786.50 CHEST PAIN NOS 11/23/2017 Ot 789.06 ABDOMINAL PAIN, EPIGASTRIC 11/23/2017 Ot V12.51 HX-VENOUS THROMBOSIS EMBOLISM 11/23/2017 Ot V12.71 PERSONAL HISTORY OF PEPTIC ULCER DISEASE 11/23/2017 Ot V58.69 OTH MED,LT, CURRENT USE 11/23/2017 Ot 789.05 ABDOMINAL PAIN, PERIUMBILIC 11/23/2017 MERLIN ABERNATHY, NELLIE [place] Ot 244.9 HYPOTHYROIDISM NOS 11/23/2017 MERLIN ABERNATHY, NELLIE [place] Ot 336.9 SPINAL CORD DISEASE NOS 11/23/2017 NELLIE BOYER MD Ot 722.10 LUMBAR DISC DISPLACEMENT 11/23/2017 NELLIE BOYER MD Ot 722.11 THORACIC DISC DISPLACMNT 11/23/2017 NELLIE BOYER MD Ot 793.89 OTH (ABN) FINDINGS ON RADIOLOGICAL EXAMI 11/23/2017 NELLIE BOYER MD Ot V16.3 FAMILY HX-BREAST MALIG 11/23/2017 NELLIE BOYER MD Ot 244.9 HYPOTHYROIDISM NOS 11/23/2017 NELLIE BOYER MD Ot 729.5 PAIN IN LIMB 11/23/2017 NELLIE BOYER MD Ot V12.51 HX-VENOUS THROMBOSIS EMBOLISM 11/23/2017 NELLIE BOYER MD Ot 440.20 ATHEROSCLEROSIS [place] ARTERIES EXTREMIT 11/23/2017 NELLIE BOYER MD Ot 440.4 CHRONIC TOTAL OCCLUSION OF ARTERY OF THE 11/23/2017 NELLIE BOYER MD Ot 729.5 PAIN IN LIMB 11/23/2017 NELLIE BOYER MD Ot V12.51 HX-VENOUS THROMBOSIS EMBOLISM 11/23/2017 MARIA VICTORIA ALBARRAN MD Ot M25.572 PAIN IN LEFT ANKLE AND JOINTS OF LEFT FO 11/23/2017 MARIA VICTORIA ALBARRAN MD Ot M79.672 PAIN IN LEFT FOOT 11/23/2017 MARIA VICTORIA ALBARRAN MD Ot N63.11 UNSPECIFIED LUMP IN THE RIGHT BREAST, UP 11/23/2017 MARIA VICTORIA ALBARRAN MD Ot K40.90 UNIL INGUINAL HERNIA, W/O OBST OR GANGR, 11/23/2017 MARIA VICTORIA ALBARRAN MD Ot N36.9 URETHRAL DISORDER, UNSPECIFIED 11/23/2017 FREDDIE ABERNATHY, ARTURO Vega Ot N20.0 CALCULUS OF KIDNEY 11/23/2017 NICHOLAS RANDALL N ADAPTIVE PHYSICAL EDUCATOR Ot R05 COUGH 11/23/2017 MARIA VICTORIA ALBARRAN MD Ot K21.9 GASTRO-ESOPHAGEAL REFLUX DISEASE WITHOUT 11/23/2017 MARIA VICTORIA ALBARRAN MD Ot K22.4 DYSKINESIA OF ESOPHAGUS 11/23/2017 MARIA VICTORIA ALBARRAN MD Ot N63.11 UNSPECIFIED LUMP IN THE RIGHT BREAST, UP 11/23/2017 MARIA VICTORIA ALBARRAN MD Ot N64.59 OTHER SIGNS AND SYMPTOMS IN BREAST 11/23/2017 MARIA VICTORIA ALBARRAN MD Ot Z98.82 BREAST IMPLANT STATUS 11/29/2017 MARIA VICTORIA ALBARRAN MD Ot N63.11 UNSPECIFIED LUMP IN THE RIGHT BREAST, UP 11/29/2017 MARIA VICTORIA ALBARRAN MD Ot N64.59 OTHER SIGNS AND SYMPTOMS IN BREAST 11/29/2017 MARIA VICTORIA ALBARRAN MD Ot Z98.82 BREAST IMPLANT STATUS 12/06/2017 MARIA VICTORIA ALBARRAN MD Ot N63.11 UNSPECIFIED LUMP IN THE RIGHT BREAST, UP 12/06/2017 MARIA VICTORIA ALBARRAN MD Ot N64.59 OTHER SIGNS AND SYMPTOMS IN BREAST 12/06/2017 MARIA VICTORIA ALBARRAN MD Ot Z98.82 BREAST IMPLANT STATUS 06/21/2018 BENNETT ABERNATHY, PIO Ot Z01.818 ENCOUNTER FOR OTHER PREPROCEDURAL EXAMIN Procedures Code Description Performed By Performed On 86.04 OTHER SKIN SUBQ I D 01/06/2010 88.42 CONTRAST AORTOGRAM 01/06/2010 88.48 CONTRAST ARTERIOGRAM-LEG 01/06/2010 86.59 CLOSURE SKIN SUBCUTANEOUS NEC 01/09/2010 38.91 ARTERIAL CATHETERIZATION 02/12/2010 88.42 CONTRAST AORTOGRAM 02/12/2010 88.48 CONTRAST ARTERIOGRAM-LEG 02/12/2010 99.10 INJECT/INFUSE THROMBOLYTIC AGENT 02/12/2010 38.08 LOWER LIMB ARTERY INCIS 02/13/2010 38.91 ARTERIAL CATHETERIZATION 02/13/2010 38.93 VENOUS CATHETERIZATION NEC 02/13/2010 88.48 CONTRAST ARTERIOGRAM-LEG 02/13/2010 99.10 INJECT/INFUSE THROMBOLYTIC AGENT 02/13/2010 Results There is no data. Encounters ACCT No. Visit Date/Time Discharge Status Pt. Type Provider Facility Loc./Unit Complaint [id number] 06/20/2018 05:52:00 06/20/2018 15:07:00 DIS Outpatient PIO GUAJARDO MD [facility] PREOP COLONOSCOPY/EGD [id number] 11/23/2017 07:54:00 11/23/2017 23:59:59 CLS Outpatient MARIA VICTORIA ALBARRAN MD [facility] RAD RT BREAST LUMP [id number] 10/09/2017 10:51:00 10/09/2017 23:59:59 CLS Outpatient MARIA VICTORIA ALBARRAN MD [facility] RAD GASTROESOPHAGEAL REFLUX DISEASE WO ESOPHAGITIS [id number] 09/25/2017 15:19:00 09/25/2017 23:59:59 CLS Outpatient NICHOLAS RANDALL APRN [facility] RAD R05 [id number] 06/28/2017 12:41:00 06/28/2017 23:59:59 CLS Outpatient ARTURO FRAZIER MD [facility] RAD LT RENAL STONE [id number] 06/09/2017 10:06:00 06/09/2017 23:59:59 CLS Outpatient MARIA VICTORIA ALBARRAN MD [facility] RAD R10.32 LEFT LOWER QUADRANT PAIN [id number] 05/19/2017 08:11:00 05/19/2017 23:59:59 CLS Outpatient MARIA VICTORIA ALBARRAN MD [facility] RAD BREAST LUMP [id number] 04/21/2017 11:48:00 04/21/2017 23:59:59 CLS Outpatient MARIA VICTORIA ALBARRAN MD [facility] RAD M79.672 [id number] 04/21/2017 10:31:00 04/21/2017 23:59:59 CLS Outpatient MARIA VICTORIA ALBARRAN MD [facility] RAD M25.572 [id number] 09/24/2014 12:27:00 09/24/2014 23:59:59 CLS Outpatient NELLIE BOYER MD [facility] RAD DVT [id number] 09/24/2014 12:15:00 09/24/2014 23:59:59 CLS Preadmit NELLIE BOYER MD [facility] RAD [id number] 09/16/2014 14:10:00 09/16/2014 23:59:59 CLS Outpatient NELLIE BOYER MD [facility] RAD LEFT UPPER LEG PAIN, HX OF DVT [id number] 07/03/2014 13:31:00 07/03/2014 23:59:59 CLS Outpatient NELLIE BOYER MD [facility] RAD HYPOTHYROID, ENLARGED FIRM THYROID [id number] 09/05/2013 22:35:00 09/08/2013 14:15:00 DIS Inpatient NELLIE BOYER MD [facility] 4TH ANEMIA,HYPOKALEMIA, INFLUENTZA-LIKE ILLNESS [id number] 06/25/2013 13:34:00 06/25/2013 23:59:59 CLS Outpatient NELLIE BOYER MD [facility] RAD STRONG FAM HX OF BREAST CA, INVERTED NIPPLE, LUMP [id number] 03/29/2013 14:30:00 05/21/2013 08:42:00 DIS Outpatient NELLIE BOYER MD [facility] REHAB NECK,UPPER BACK,LUMBAR PAIN,CERVICAL STENOSIS [id number] 04/26/2013 14:37:00 04/26/2013 17:16:00 DIS Emergency VINOD CAICEDO MD [facility] ER MULTIPLE COMPLAINTS [id number] 04/04/2013 13:20:00 04/04/2013 23:59:59 CLS Outpatient [id number] 02/26/2013 08:06:00 02/26/2013 23:59:59 CLS Outpatient NELLIE BOYER MD [facility] RAD C SPINE UPPER BACK NECK ALEJANDRO, LOW BACK PAIN, [id number] 12/17/2012 13:08:00 12/17/2012 23:59:59 CLS Outpatient NELLIE BOYER MD [facility] RAD HYPOTHYROIDISM [id number] 06/27/2018 09:30:00 PEN Preadmit PIO GUAJARDO MD [facility] ENDO SCREENING/EPIGASTRIC PAIN [id number] 06/20/2018 14:48:00 Document Registration [id number] 06/20/2018 14:48:00 Document Registration [id number] 09/16/2014 14:10:00 Document Registration [id number] 09/16/2014 14:10:00 Document Registration [id number] 11/29/2012 08:09:00 Document Registration [id number] 10/26/2012 10:09:00 Document Registration [id number] 10/24/2012 12:24:00 Document Registration [id number] 05/09/2012 00:00:00 Document Registration [id number] 02/16/2012 10:27:00 Document Registration [id number] 01/23/2012 08:34:00 Document Registration [id number] 01/19/2012 10:33:00 Document Registration [id number] 01/10/2012 08:43:00 Document Registration [id number] 12/29/2011 13:24:00 Document Registration [id number] 12/22/2011 10:11:00 Document Registration [id number] 10/26/2011 13:24:00 Document Registration [id number] 10/13/2011 05:39:00 Document Registration [id number] 10/06/2011 14:18:00 Document Registration [id number] 09/27/2011 11:54:00 Document Registration [id number] 09/02/2011 10:28:00 Document Registration [id number] 06/15/2011 09:14:00 Document Registration [id number] 02/16/2011 09:23:00 Document Registration [id number] 12/16/2010 10:43:00 Document Registration [id number] 08/19/2010 10:08:00 Document Registration [id number] 06/02/2010 09:13:00 Document Registration [id number] 05/20/2010 11:44:00 Document Registration [id number] 03/23/2010 14:00:00 Document Registration [id number] 03/04/2010 14:17:00 Document Registration [id number] 03/01/2010 10:08:00 Document Registration [id number] 02/12/2010 11:33:00 Document Registration [id number] 02/03/2010 05:43:00 Document Registration [id number] 01/27/2010 10:00:00 Document Registration [id number] 01/20/2010 10:14:00 Document Registration [id number] 01/03/2010 13:14:00 Document Registration [id number] 11/05/2009 09:22:00 Document Registration [id number] 09/24/2014 18:03:50 ACT Document Registration
[2018-06-27] MEDS ORDERED: MIDAZOLAM 2 MG/2 ML (VERSED) VIAL IVP ONE (09:15)
[2018-06-27] MEDS ORDERED: HURRICAINE EXT TUBE (BENZOCAINE) XX PRN (09:15)
[2018-06-27] MEDS ORDERED: fentaNYL INJECTION 100 MCG/2 ML AMP IVP ONE (09:15)
[2018-06-27] MEDS ORDERED: NS IV 500 ML 500 ML ONE ×2 (09:18→11:12)
[2018-06-27 09:20] VITALS: BP 125/75
[2018-06-27] MEDS: NS IV 500 ML 500 ML IV PRN ×2 (09:40→11:20)
[2018-06-27] MEDS ORDERED: fentaNYL INJECTION 100 MCG/2 ML AMP ONE ×2 (10:23→10:24)
[2018-06-27] MEDS ORDERED: MIDAZOLAM 2 MG/2 ML (VERSED) VIAL ONE ×5 (10:23→10:24)
[2018-06-27] MEDS ORDERED: LIDOCAINE JELLY 2% 6 ML SYRINGE ONE (10:23)
[2018-06-27] MEDS ORDERED: HURRICAINE EXT TUBE (BENZOCAINE) ONE (10:24)
--- NOTE | 2018-06-27 11:52 | Conscious Sedation/ASA ---
Conscious Sedation Pre-Proced Time 10:00 ASA Score 2 For ASA 3 and 4: Consider anesthesia and medical clearance. Also, for patients with a history of failed moderate sedation consider anesthesia. Airway Lungs Heart ASA score ASA 1: a normal healthy patient ASA 2: a patient with a mild systemic disease (mid diabetes, controlled hypertension, obesity ASA 3: a patient with a severe systemic disease that limits activity (angina , COPD, prior Myocardial infarction) ASA 4: a patient with an incapacitating disease that is a constant threat to life (CHF, renal failure) ASA 5: a moribund patient not expected to survive 24 hrs. (ruptured aneurysm) ASA 6: a declared brain patient whose organs are being harvested. For emergent operations, add the letter E after the classification Mallampati Classification Grade 2 Sedation Plan Analgesia, Amnesia, Plan communicated to team members, Discussed options with patient/fam, Discussed risks with patient/fam The patient is an appropriate candidate to undergo the planned procedure, sedation, and anesthesia. The patient immediately re-assessed prior to indication. PIO GUAJARDO MD Jun 27, 2018 11:52 am
--- NOTE | 2018-06-27 11:53 | Progress Note-Pre Operative ---
Pre-Operative Progress Note H&P Reviewed The H&P was reviewed, patient examined and no changes noted. Date Seen by Provider: Jun 27, 2018 Time Seen by Provider: 10:00 Date H&P Reviewed: Jun 27, 2018 Time H&P Reviewed: 10:00 Pre-Operative Diagnosis: GERD, dysphagia, screening colonoscopy PIO GUAJARDO MD Jun 27, 2018 11:53 am
--- NOTE | 2018-06-27 11:55 | Progress Note-Post Operative ---
Post-Operative Progess Note Surgeon (s)/Shirt Marker (s) Surgeon PIO GUAJARDO MD Shirt Marker: none Pre-Operative Diagnosis GERD, dysphagia, screening colonoscopy Post-Operative Diagnosis reflux esophagitis(stage 2), small-moderate hiatal hernia(2-2.5cm), mild gastritis. chronic stage 2 ext and int hemorrhoids. Procedure & Operative Findings Date of Procedure 06/27/18 Procedure Performed/Findings EGD with bx. Colonoscopy. Anesthesia Type CS Estimated Blood Loss Estimated blood loss (mL): minimal Specimens/Packing Specimens Removed GE jxn, antrum PIO GUAJARDO MD Jun 27, 2018 11:55 am
[2018-06-27] MEDS ORDERED: PANT40TA2 PO (11:56)
--- NOTE | 2018-06-27 11:57 | Discharge Inst-Surgical ---
D/C Lap Instructions-KIDO New, Converted, or Re-Newed RX: RX on Chart Follow Up Appt in 2 weeks Activity as tolerated High Fiber Diet 25g or more per day Avoid Alcohol, Caffeine, Spicy [place] and Acid foods. Drink 64 fluid oz or more of fluids per day. Symptoms to Report: Fever over 101 degree F, Nausea/Vomiting If any problems/questions: Contact your physician or go to Emergency Room PIO GUAJARDO MD Jun 27, 2018 11:57 am
[2018-06-27 12:20] VITALS: BP 111/62
[2018-06-27 12:50] VITALS: BP 117/68
--- NOTE | 2018-06-27 16:17 | OPERATIVE REPORT ---
DATE OF SERVICE: 06/27/2018 ATTENDING PHYSICIAN: Alfie Funes MD. PREOPERATIVE DIAGNOSES: Gastroesophageal reflux disease, dysphagia, and screening colonoscopy. POSTOPERATIVE DIAGNOSES: Reflux esophagitis, stage II; small to moderate size hiatal hernia, approximately 2 cm to 2.5 cm in size; and mild gastritis. No distal obstructions. Chronic stage II external and internal hemorrhoids. Remainder of the rectum and colon were normal. PROCEDURES PERFORMED: Esophagogastroduodenoscopy with biopsy, colonoscopy. SURGEON: Pio Guajardo MD. ANESTHESIA: Conscious sedation. ESTIMATED BLOOD LOSS: Minimal. FINDINGS: 1. EGD, reflux esophagitis, stage II, no ulcers or strictures, small to moderate size hiatal hernia, 2 cm to 2.5 cm in size. There was a mild severity gastritis. No formal ulcerations, polyps or any neoplasms. Pylorus and duodenum appeared normal with no distal obstructions. 2. Colonoscopy, chronic stage II external and internal hemorrhoids, not actively edematous nor inflamed and no bleeding. The remainder of the rectum and colon were normal. DISPOSITION: The patient tolerated the procedure well. INDICATIONS: The patient is a 53-year-old female with epigastric pain as well as dysphagia. She reports that she has had a history of crampy pain after taking in a food bolus and then would feel a pressure sensation and this would eventually resolve on its own. She does not report any regurgitation or andrew episodes of nausea, no vomiting. She states that this was initially very infrequent; however, has become more frequent over time. She also has noticed one episode of dark stools in 11/2017, which resolved on its own. She has not had a colonoscopy up to this point in her life. She reports for the most part, she is having normal bowel movements and does not report any red blood per rectum. DESCRIPTION OF PROCEDURE: The patient was brought to the operating room, laid supine on the table. After adequate IV pain and sedating medications and conscious sedation anesthesia, the mouthpiece was applied. The endoscope was placed in the mouth, visualizing the pharynx and hypopharyngeal region. Vocal cords, epiglottis and vallecula identified and appeared to be normal. The endoscope was then gently intubated in the esophageal opening and esophagus insufflated. The endoscope was then advanced through the first, second and third portion of the esophagus at the level of GE junction, a reflux esophagitis, stage II identified. There were no ulcerations or strictures identified in this region. The GE junction appeared to be intrathoracic consistent with a hiatal hernia as well. The endoscope was then advanced in the stomach and endoscope retroflexed, visualizing a hiatal hernia, which was small to moderate size approximately 2 cm to 2.5 cm in size. A mild severity gastritis was noted. There were no formal ulcerations, polyps or any neoplasms. A biopsy was taken of the stomach antrum with forceps with visualization of good hemostasis. The endoscope was then advanced to the pylorus and the first and second portion of the duodenum, which appeared normal. No distal obstructions. The patient tolerated this portion of the procedure well. We will await the biopsy results and await medical management. We feel that the etiology of her dysphagia is secondary to the hiatal hernia. If she continues to be symptomatic, we will recommend further evaluation for possible hiatal hernia repair, which would encompass an esophageal manometry study to rule out any esophageal dysmotility disorders. In the meantime, we will continue with an acid reduction therapy with Protonix and have her take in small and more frequent meals, avoidance of eating at night as well as head elevation while lying supine and she also needs to avoid caffeinated beverages, spicy, greasy and acidic foods. Under the same anesthesia, we then proceeded with the colonoscopy portion of procedure. A digital rectal examination was performed, which revealed chronic stage II external and internal hemorrhoids, not actively edematous nor inflamed and no bleeding. Normal sphincter tone was felt and there were no palpable masses. The endoscope was then intubated into the anus and rectum gently insufflated. The endoscope was then advanced to the valves of Thomas of the rectum with no polyps or any neoplasms identified. We then proceeded through the sigmoid colon where no diverticulosis identified. The endoscope was then advanced through the remainder of the descending, transverse and ascending colon to the cecum. These segments were normal as well. There were no polyps or any neoplasms identified. The endoscope was then slowly withdrawn while taking a second look and suctioning of residual air with no additional findings. The patient tolerated the procedure well. We will recommend continued medical management with a high fiber diet with at least 25 grams of fiber per day as well as 64 fluid ounces of water daily to promote soft stools on a daily basis. She does not need another colonoscopy for another 10 years. Job ID: [id number] DocumentID: [id number] Dictated Date: 06/27/2018 11:50:30 Manager Music Date: 06/27/2018 16:16:35 Dictated By: PIO GUAJARDO MD
== END 2018-06-27 13:15 | disposition home or self-care (01) ==
LOC: ENDO 09:01
PROVIDERS: ATTEND Surgery
DX: Z12.11 Encounter for screening for malignant neoplasm of colon (principal); K21.0 Gastro-esophageal reflux disease with esophagitis; K44.9 Diaphragmatic hernia without obstruction or gangrene; K29.70 Gastritis, unspecified, without bleeding; K64.1 Second degree hemorrhoids; E06.3 Autoimmune thyroiditis; E78.00 Pure hypercholesterolemia, unspecified; Z86.718 Personal history of other venous thrombosis and embolism; Z79.82 Long term (current) use of aspirin; Z79.899 Other long term (current) drug therapy

== ENCOUNTER 2018-08-02 12:03 | Outpatient (CLI) | payer BC ==
[~2018-08-02] VITALS: Ht 157.5 cm; Wt 76.7 kg
[~2018-08-02 12:03] MED LIST changes: +PANT40TA2 PO
[2018-08-03] MEDS ORDERED: HYDR-34 PO (09:52)
== END 2018-08-02 12:43 | disposition home or self-care (01) ==
LOC: PREOP 12:03
PROVIDERS: ATTEND Surgery
DX: Z01.818 Encounter for other preprocedural examination (principal)

== ENCOUNTER 2018-08-03 09:06 | Day surgery (SDC) | payer BC ==
[~2018-08-03] VITALS: Ht 157.5 cm; Wt 76.9 kg
[2018-08-03 09:20] VITALS: BP 134/72
--- OUTSIDE RECORDS SUMMARY | 2018-08-03 09:28 | XMS REPORT | Continuity of Care Document ---
Author Author [facility] Organization [facility] Address Unknown Phone Unavailable Allergies Active Description Code Type Severity Reaction Onset Reported/Identified Relationship to Patient Clinical Status Yes cephalexin [id number] Drug Allergy Unknown N/A 11/15/2005 Yes erythromycin base [id number] Drug Allergy Unknown N/A 06/27/2018 Yes latex [id number] Drug Allergy Unknown N/A 06/27/2018 Yes Penicillins [id number] Drug Allergy Unknown RASH 06/27/2018 Medications There is no data. Problems Date [...] NELLIE J Ot 336.9 09/16/2014 [facility] AB[facility]ATHY[facility] Ot 722.10 09/16/2014 [facility] Ot 722.11 09/16/2014 [facility], [facility] Ot 793.89 09/16/2014 [facility], [facility] Ot V16.3 09/16/2014 MERLIN ABERNATHY, NELLIE J Ot 244.9 09/25/2014 [facility] AB[facility]ATH[facility], [facility] Ot 440.20 09/25/2014 [facility] AB[facility]ATH[facility], [facility] Ot 440.4 09/25/2014 [facility] AB[facility]ATH[facility], [facility] Ot 729.5 09/25/2014 [facility] AB[facility]ATH[facility], [facility] Ot V12.51 10/02/2014 [facility] ABERNATHY, [facility] Ot 729.5 10/02/2014 [facility] AB[facility]ATH[facility], [facility] Ot V12.51 10/09/2014 [facility] AB[facility]ATH[facility], [facility] Ot 440.20 10/09/2014 [facility] Ot 440.4 10/09/2014 [facility] Ot 729.5 10/09/2014 MERLIN ABERNATHY, NELLIE [...] 336.9 SPINAL CORD DISEASE NOS 01/07/2016 NELLIE BYOER MD Ot 722.10 LUMBAR DISC DISPLACEMENT 01/07/2016 [...] 01/07/2016 NELLIE BOYER MD Ot 440.20 ATHEROSCLEROSIS MORONGO ARTERIES EXTREMIT 01/07/2016 NELLIE BOYER MD Ot [...] 09/16/2016 NELLIE BOYER MD Ot 440.20 ATHEROSCLEROSIS MORONGO ARTERIES EXTREMIT 09/16/2016 NELLIE BOYER MD Ot [...] 06/07/2017 NELLIE BOYER MD Ot 440.20 ATHEROSCLEROSIS MORONGO ARTERIES EXTREMIT 06/07/2017 NELLIE BOYER MD Ot [...] CALCULUS OF KIDNEY 09/25/2017 NICHOLAS RANDALL N [employer]ANIC Ot R05 COUGH 10/06/2017 Ot 285.9 ANEMIA [...] 10/06/2017 NELLIE BOYER MD Ot 440.20 ATHEROSCLEROSIS MORONGO ARTERIES EXTREMIT 10/06/2017 NELLIE BOYER MD Ot 440.4 CHRONIC TOTAL OCCLUSION OF ARTERY OF THE 10/06/2017 NELLIE BOYER MD Ot 729.5 PAIN IN LIMB 10/06/2017 NELLIE [...] CALCULUS OF KIDNEY 10/06/2017 NICHOLAS RANDALL N [employer]BI[employer] MECHANIC Ot R05 COUGH 10/09/2017 MARIA VICTORIA ALBARRAN [...] 11/10/2017 NELLIE BOYER MD Ot 440.20 ATHEROSCLEROSIS MORONGO ARTERIES EXTREMIT 11/10/2017 NELLIE BOYER MD Ot [...] CALCULUS OF KIDNEY 11/10/2017 NICHOLAS RANDALL N [employer]BI[employer] MECHANIC Ot R05 COUGH 11/10/2017 MARIA VICTORIA ALBARRAN [...] 11/10/2017 NELLIE BOYER MD Ot 440.20 ATHEROSCLEROSIS MORONGO ARTERIES EXTREMIT 11/10/2017 NELLIE BOYER MD Ot [...] Ot N36.9 URETHRAL DISORDER, UNSPECIFIED 11/10/2017 FREDDIE ABERNAHTY, ARTURO Vega Ot N20.0 CALCULUS OF KIDNEY [...] 11/23/2017 NELLIE BOYER MD Ot 440.20 ATHEROSCLEROSIS MORONGO ARTERIES EXTREMIT 11/23/2017 NELLIE BOYER MD Ot [...] CALCULUS OF KIDNEY 11/23/2017 NICHOLAS RANDALL N [employer] EQU[employer]MENT MECHANIC Ot R05 COUGH 11/23/2017 MARIA VICTORIA ALBARRAN [...] ALBARRAN MD Ot Z98.82 BREAST IMPLANT STATUS 06/20/2018 PIO GUAJARDO MD Ot Z01.818 ENCOUNTER FOR OTHER PREPROCEDURAL EXAMIN 06/21/2018 PIO GUAJARDO MD, Ot Z01.818 ENCOUNTER FOR OTHER PREPROCEDURAL EXAMIN 06/27/2018 PIO GUAJARDO MD Ot E06.3 AUTOIMMUNE THYROIDITIS 06/27/2018 PIO GUAJARDO MD Ot E78.00 PURE HYPERCHOLESTEROLEMIA, UNSPECIFIED 06/27/2018 PIO GUAJARDO MD Ot K21.0 GASTRO-ESOPHAGEAL REFLUX DISEASE WITH ES 06/27/2018 PIO GUAJARDO MD Ot K29.70 GASTRITIS, UNSPECIFIED, WITHOUT BLEEDING 06/27/2018 PIO GUAJARDO MD Ot K44.9 DIAPHRAGMATIC HERNIA WITHOUT OBSTRUCTION 06/27/2018 PIO GUAJARDO MD Ot K64.1 SECOND DEGREE HEMORRHOIDS 06/27/2018 PIO GUAJARDO MD Ot Z12.11 ENCOUNTER FOR SCREENING FOR MALIGNANT NE 06/27/2018 PIO GUAJARDO MD, Ot Z79.82 TRAIN CREW MEMBER (CURRENT) USE OF ASPIRIN 06/27/2018 PIO GUAJARDO MD Ot Z79.899 OTHER FPC (CURRENT) DRUG THERAPY 06/27/2018 PIO GUAJARDO MD, Ot Z86.718 PERSONAL HISTORY OF OTHER VENOUS THROMBO 06/29/2018 PIO GUAJARDO MD Ot E06.3 AUTOIMMUNE THYROIDITIS 06/29/2018 PIO GUAJARDO MD Ot E78.00 PURE HYPERCHOLESTEROLEMIA, UNSPECIFIED 06/29/2018 PIO GUAJARDO MD Ot K21.0 GASTRO-ESOPHAGEAL REFLUX DISEASE WITH ES 06/29/2018 PIO GUAJARDO MD Ot K29.70 GASTRITIS, UNSPECIFIED, WITHOUT BLEEDING 06/29/2018 PIO GUAJARDO MD Ot K44.9 DIAPHRAGMATIC HERNIA WITHOUT OBSTRUCTION 06/29/2018 PIO GUAJARDO MD Ot K64.1 SECOND DEGREE HEMORRHOIDS 06/29/2018 PIO GUAJARDO MD Ot Z12.11 ENCOUNTER FOR SCREENING FOR MALIGNANT NE 06/29/2018 PIO GUAJARDO MD, Ot Z79.82 FPC (CURRENT) USE OF ASPIRIN 06/29/2018 PIO GUAJARDO MD, Ot Z79.899 OTHER TRAIN CREW MEMBER (CURRENT) DRUG THERAPY 06/29/2018 PIO GUAJARDO MD, Ot Z86.718 PERSONAL HISTORY OF OTHER VENOUS THROMBO 07/31/2018 MERLIN ABERNATHY, NELLIE [place] Ot 336.9 SPINAL CORD DISEASE NOS 07/31/2018 NELLIE BOYER MD Ot 722.10 LUMBAR DISC DISPLACEMENT 07/31/2018 NELLIE BOYER MD Ot 722.11 THORACIC DISC DISPLACMNT 07/31/2018 NELLIE BOYER MD Ot 793.89 OTH (ABN) FINDINGS ON RADIOLOGICAL EXAMI 07/31/2018 NELLIE BOYER MD Ot V16.3 FAMILY HX-BREAST MALIG 07/31/2018 NELLIE BOYER MD Ot 244.9 HYPOTHYROIDISM NOS 07/31/2018 NELLIE BOYER MD Ot 729.5 PAIN IN LIMB 07/31/2018 NELLIE BOYER MD Ot V12.51 HX-VENOUS THROMBOSIS EMBOLISM 07/31/2018 NELLIE BOYER MD Ot 440.20 ATHEROSCLEROSIS MORONGO ARTERIES EXTREMIT 07/31/2018 NELLIE BOYER MD Ot 440.4 CHRONIC TOTAL OCCLUSION OF ARTERY OF THE 07/31/2018 NELLIE BOYER MD Ot 729.5 PAIN IN LIMB 07/31/2018 NELLIE BOYER MD Ot V12.51 HX-VENOUS THROMBOSIS EMBOLISM 07/31/2018 MARIA VICTORIA ALBARRAN MD Ot M25.572 PAIN IN LEFT ANKLE AND JOINTS OF LEFT FO 07/31/2018 MARIA VICTORIA ALBARRAN MD, Ot M79.672 PAIN IN LEFT FOOT 07/31/2018 MARIA VICTORIA ALBARRAN MD Ot N63.11 UNSPECIFIED LUMP IN THE RIGHT BREAST, UP 07/31/2018 MARIA VICTORIA ALBARRAN MD Ot K40.90 UNIL INGUINAL HERNIA, W/O OBST OR GANGR, 07/31/2018 MARIA VICTORIA ALBARRAN MD, Ot N36.9 URETHRAL DISORDER, UNSPECIFIED 07/31/2018 FREDDIE ABERNATHY, ARTURO Vega Ot N20.0 CALCULUS OF KIDNEY 07/31/2018 NICHOLAS RANDALL [employer] MECH[employer]IC Ot R05 COUGH 07/31/2018 MARIA VICTORIA ALBARRAN MD Ot K21.9 GASTRO-ESOPHAGEAL REFLUX DISEASE WITHOUT 07/31/2018 MARIA VICTORIA ALBARRAN MD Ot K22.4 DYSKINESIA OF ESOPHAGUS 07/31/2018 MARIA VICTORIA ALBARRAN MD, Ot N63.11 UNSPECIFIED LUMP IN THE RIGHT BREAST, UP 07/31/2018 MARIA VICTORIA ALBARRAN MD, Ot N64.59 OTHER SIGNS AND SYMPTOMS IN BREAST 07/31/2018 MARIA VICTORIA ALBARRAN MD, Ot Z98.82 BREAST IMPLANT STATUS 08/02/2018 BENNETT ABERNATHY, PIO Ot Z01.818 ENCOUNTER FOR [...] Status Pt. Type Provider Facility Loc./Unit Complaint [id number] 08/02/2018 12:03:00 08/02/2018 12:43:00 DIS Outpatient PIO GUAJARDO MD [facility] PREOP LEFT INGUINAL HERNIA/ EGD [id number] 06/27/2018 09:01:00 06/27/2018 13:15:00 DIS Outpatient PIO GUAJARDO MD [facility] ENDO SCREENING/EPIGASTRIC PAIN [id number] 06/20/2018 05:52:00 06/20/2018 15:07:00 DIS Outpatient PIO GUAJARDO MD [facility] PREOP COLONOSCOPY/EGD [id number] 11/23/2017 07:54:00 11/23/2017 23:59:59 CLS Outpatient MARIA VICTORIA ALBARRAN MD [facility] RAD RT BREAST LUMP [id number] 10/09/2017 10:51:00 10/09/2017 23:59:59 CLS Outpatient MARIA VICTORIA ALBARRAN MD [facility] RAD GASTROESOPHAGEAL REFLUX DISEASE WO ESOPHAGITIS [id number] 09/25/2017 15:19:00 09/25/2017 23:59:59 CLS Outpatient NICHOLAS RANDALL APRN [facility] RAD R05 [id number] 06/28/2017 12:41:00 06/28/2017 23:59:59 CLS Outpatient ARTURO FRAZIER MD [facility] RAD LT RENAL STONE [id number] 06/09/2017 10:06:00 06/09/2017 23:59:59 CLS Outpatient MARIA VICTORIA ALBARRAN MD [facility] RAD R10.32 LEFT LOWER QUADRANT PAIN [id number] 05/19/2017 08:11:00 05/19/2017 23:59:59 CLS Outpatient MARIA VICTORIA ALBARRAN MD [facility] RAD BREAST LUMP [id number] 04/21/2017 11:48:00 04/21/2017 23:59:59 CLS Outpatient MARIA VICTORIA ALBARRAN MD [facility] RAD M79.672 [id number] 04/21/2017 10:31:00 04/21/2017 23:59:59 CLS Outpatient AVIS ABERNATHY, MARIA VICTORIA Zelaya [facility] RAD M25.572 [id number] 09/24/2014 12:27:00 09/24/2014 23:59:59 CLS Outpatient NELLIE BOYER MD [facility] RAD DVT [id number] 09/24/2014 12:15:00 09/24/2014 23:59:59 CLS Preadmit NELLIE BOYER MD [facility] RAD [id number] 09/16/2014 14:10:00 09/16/2014 23:59:59 CLS Outpatient NELLIE BOYER MD [facility] RAD LEFT UPPER LEG PAIN, HX OF DVT [id number] 07/03/2014 13:31:00 07/03/2014 23:59:59 CLS Outpatient NELLIE BOYER MD [facility] RAD HYPOTHYROID, ENLARGED FIRM THYROID [id number] 09/05/2013 22:35:00 09/08/2013 14:15:00 DIS Inpatient NELLIE BOYER MD [facility] 4TH ANEMIA,HYPOKALEMIA, INFLUENTZA-LIKE ILLNESS [id number] 06/25/2013 13:34:00 06/25/2013 23:59:59 CLS Outpatient NELLIE BOYER MD [facility] RAD STRONG FAM HX OF BREAST CA, INVERTED NIPPLE, LUMP [id number] 03/29/2013 14:30:00 05/21/2013 08:42:00 DIS Outpatient NELLIE BOYER MD [facility] REHAB NECK,UPPER BACK,LUMBAR PAIN,CERVICAL STENOSIS [id number] 04/26/2013 14:37:00 04/26/2013 17:16:00 DIS Emergency VINOD CAICEDO MD [facility] ER MULTIPLE COMPLAINTS [id number] 04/04/2013 13:20:00 04/04/2013 23:59:59 CLS Outpatient [id number] 02/26/2013 08:06:00 02/26/2013 23:59:59 CLS Outpatient NELLIE BOYER MD [facility] RAD C SPINE UPPER BACK NECK ALEJANDRO, LOW BACK PAIN, [id number] 12/17/2012 13:08:00 12/17/2012 23:59:59 CLS Outpatient NELLIE BOYER MD [facility] RAD HYPOTHYROIDISM [id number] 08/03/2018 09:06:00 ACT Outpatient PIO GUAJARDO MD [facility] SDC INCISIONAL HERNIA, LEFT INGUINAL HERNIA / DYSHAGIA [id number] 06/20/2018 14:48:00 Document Registration [id number] 06/20/2018 14:48:00 Document Registration [id number] 09/16/2014 14:10:00 Document Registration [id number] 09/16/2014 14:10:00 Document Registration [id number] 11/29/2012 08:09:00 Document Registration [id number] 10/26/2012 10:09:00 Document Registration [id number] 10/24/2012 12:24:00 Document Registration [id number] 05/09/2012 00:00:00 Document Registration [id number] 02/16/2012 10:27:00 Document Registration [id number] 01/23/2012 08:34:00 Document Registration [id number] 01/19/2012 10:33:00 Document Registration [id number] 01/10/2012 08:43:00 Document Registration [id number] 12/29/2011 13:24:00 Document Registration [id number] 12/22/2011 10:11:00 Document Registration [id number] 10/26/2011 13:24:00 Document Registration [id number] 10/13/2011 05:39:00 Document Registration [id number] 10/06/2011 14:18:00 Document Registration [id number] 09/27/2011 11:54:00 Document Registration [id number] 09/02/2011 10:28:00 Document Registration [id number] 06/15/2011 09:14:00 Document Registration [id number] 02/16/2011 09:23:00 Document Registration [id number] 12/16/2010 10:43:00 Document Registration [id number] 08/19/2010 10:08:00 Document Registration [id number] 06/02/2010 09:13:00 Document Registration [id number] 05/20/2010 11:44:00 Document Registration [id number] 03/23/2010 14:00:00 Document Registration [id number] 03/04/2010 14:17:00 Document Registration [id number] 03/01/2010 10:08:00 Document Registration [id number] 02/12/2010 11:33:00 Document Registration [id number] 02/03/2010 05:43:00 Document Registration [id number] 01/27/2010 10:00:00 Document Registration [id number] 01/20/2010 10:14:00 Document Registration [id number] 01/03/2010 13:14:00 Document Registration [id number] 11/05/2009 09:22:00 Document Registration [id number] 09/24/2014 18:03:50 ACT Document Registration
[2018-08-03] MEDS ORDERED: CLINDAMYCIN 600 MG/50 ML IVPB 50 ML IV ONE (09:30)
[2018-08-03] MEDS ORDERED: BUP/EPI 0.5% 1:200,000 (SENSORCAINE) 30 ML VIAL ONE (09:35)
[2018-08-03] MEDS ORDERED: ONDANSETRON 4 MG/2 ML (SDV) Z0FRAN ONE (09:37)
[2018-08-03] MEDS ORDERED: fentaNYL INJECTION 100 MCG/2 ML AMP ONE (09:37)
[2018-08-03] MEDS ORDERED: LIDOCAINE PF 2% 5 ML (XYLOCAINE) VIAL ONE (09:37)
[2018-08-03] MEDS ORDERED: proPOfol 200 MG/20 ML (DIPRIVAN) VIAL IV ONE (09:37)
[2018-08-03] MEDS ORDERED: ROCURONIUM 10 MG/ML 5 ML SYRINGE IV ONE (09:37)
[2018-08-03] MEDS ORDERED: MIDAZOLAM 2 MG/2 ML (VERSED) VIAL ONE (09:38)
[2018-08-03] MEDS ORDERED: SEVOFLURANE (ULTANE) 15 ML INHAL SOLN ONE ×8 (09:41→12:01)
[2018-08-03] MEDS ORDERED: DEXAMETHASONE 10 MG/ML (DECADRON) 1 ML VIAL ONE (09:41)
--- NOTE | 2018-08-03 09:45 | Conscious Sedation/ASA ---
Conscious Sedation Pre-Proced Time 09:45 ASA Score 2 For ASA 3 and 4: Consider anesthesia and medical clearance. Also, for patients with a history of failed moderate sedation consider anesthesia. Airway Lungs Heart ASA score ASA 1: a normal healthy patient ASA 2: a patient with a mild systemic disease (mid diabetes, controlled hypertension, obesity ASA 3: a patient with a severe systemic disease that limits activity (angina , COPD, prior Myocardial infarction) ASA 4: a patient with an incapacitating disease that is a constant threat to life (CHF, renal failure) ASA 5: a moribund patient not expected to survive 24 hrs. (ruptured aneurysm) ASA 6: a declared brain patient whose organs are being harvested. For emergent operations, add the letter E after the classification Mallampati Classification Grade 2 Sedation Plan Analgesia, Amnesia, Plan communicated to team members, Discussed options with patient/fam, Discussed risks with patient/fam The patient is an appropriate candidate to undergo the planned procedure, sedation, and anesthesia. The patient immediately re-assessed prior to indication. PIO GUAJARDO MD Aug 03, 2018 09:45
--- NOTE | 2018-08-03 09:49 | Progress Note-Pre Operative ---
Pre-Operative Progress Note H&P Reviewed The H&P was reviewed, patient examined and no changes noted. Date Seen by Provider: Aug 03, 2018 Time Seen by Provider: 09:45 Date H&P Reviewed: Aug 03, 2018 Time H&P Reviewed: :45 Pre-Operative Diagnosis: reducible symptomatic incisional and left inguinal hernia. PIO GUAJAROD MD Aug 03, 2018 09:48
[2018-08-03] MEDS ORDERED: HYDR-34 PO (09:52)
--- NOTE | 2018-08-03 09:53 | Discharge Inst-Surgical ---
D/C Lap Instructions-BENNETT New, Converted, or Re-Newed RX: RX on Chart Follow Up Appt in 2 weeks Activity as tolerated No driving for 24 hours No driving while on pain medications sitz bath BID and PRN Incentive Spirometry use every 2 hours while awake Regular Diet Symptoms to Report: Fever over 101 degree F, Nausea/Vomiting Infection Signs and Symptoms to report: Increased redness, Foul odor of wound, Increased drainage Bathing instructions: May shower Operative Area Clean/Dry; Keep incision clean/dry If any problems/questions: Contact your physician or go to Emergency Room PIO GUAJARDO MD Aug 03, 2018 09:53
[2018-08-03] MEDS: LACTATED RINGERS 1,000 ML IV PRN ×2 (09:55→11:30)
[2018-08-03] MEDS ORDERED: morphine INJ 10 MG/ML 1ML (SYR OR VIAL) IVP PRN (10:00)
[2018-08-03] MEDS ORDERED: ONDANSETRON 4 MG/2 ML (SDV) Z0FRAN IVP PRN ×2 (10:00→13:00)
[2018-08-03] MEDS ORDERED: HYDROcodone/APAP 5 MG/325 MG (LORTAB) TAB PO ONE (10:00)
[2018-08-03] MEDS ORDERED: ACETAMINOPHEN 325 MG TABLET PO PRN (10:00)
[2018-08-03] MEDS ORDERED: SCOPOLAMINE 1.5 MG (TRANSDERM-SCOP) PATCH ONE (10:04)
[2018-08-03] MEDS ORDERED: FAMOTIDINE 20MG/2ML IV (PEPCID) ONE (10:04)
[2018-08-03 10:15] LABS: BASOPHILS % (AUTO) 0 % (0-10); EOSINOPHILS # (AUTO) 0.1 10^3/uL (0.0-0.3); EOSINOPHILS % (AUTO) 1 % (0-10); HEMATOCRIT 38 % (35-52); HEMOGLOBIN 12.7 G/DL (11.5-16.0); LYMPHOCYTES # (AUTO) 1.9 X 10^3 (1.0-4.0); LYMPHOCYTES % (AUTO) 37 % (12-44); MEAN CORPUSCULAR HEMOGLOBIN 30 PG (25-34); MEAN CORPUSCULAR HGB CONC 33 G/DL (32-36); MEAN CORPUSCULAR VOLUME 90 FL (80-99); MEAN PLATELET VOLUME 10.2 FL (7.4-10.4); MONOCYTES # (AUTO) 0.5 X 10^3 (0.0-1.0); MONOCYTES % (AUTO) 10 % (0-12); NEUTROPHILS # (AUTO) 2.6 X 10^3 (1.8-7.8); NEUTROPHILS % (AUTO) 52 % (42-75); PLATELET COUNT 284 10^3/uL (130-400); RED BLOOD COUNT 4.24 10^6/uL (4.35-5.85); RED CELL DISTRIBUTION WIDTH 13.9 % (10.0-14.5); WHITE BLOOD COUNT 5.1 10^3/uL (4.3-11.0)
[2018-08-03] MEDS ORDERED: SCOPOLAMINE 1.5 MG (TRANSDERM-SCOP) PATCH TOP ONE (11:15)
[2018-08-03] MEDS ORDERED: ONDANSETRON 4 MG/2 ML (SDV) Z0FRAN IV ONE (11:15)
[2018-08-03] MEDS ORDERED: FAMOTIDINE 20MG/2ML IV (PEPCID) IV ONE (11:15)
--- NOTE | 2018-08-03 12:38 | Progress Note-Post Operative ---
Post-Operative Progess Note Surgeon (s)/Auto Wrecker (s) Surgeon PIO GUAJARDO MD Auto Wrecker: none Pre-Operative Diagnosis reducible symptomatic incisional and left inguinal hernia. Post-Operative Diagnosis same. Procedure & Operative Findings Date of Procedure 08/03/18 Procedure Performed/Findings laparoscopic left indirect inguinal hernia repair with mesh. incisional hernia repair. EGD with bx and dilatation. Anesthesia Type GET Estimated Blood Loss Estimated blood loss (mL): minimal Specimens/Packing Specimens Removed GE jxn, antrum PIO GUAJARDO MD Aug 03, 2018 12:38
[2018-08-03] MEDS ORDERED: morphine INJ 10 MG/ML 1ML (SYR OR VIAL) IVP ONE (13:00)
[2018-08-03 13:40] VITALS: BP 107/60
[2018-08-03] MEDS ORDERED: HYDROcodone/APAP 5 MG/325 MG (LORTAB) TAB ONE (13:48)
[2018-08-03 14:10] VITALS: BP 99/57
[2018-08-03 14:40] VITALS: BP 106/62
[2018-08-03 15:17] VITALS: BP 106/62
--- NOTE | 2018-08-04 00:25 | OPERATIVE REPORT ---
DATE OF SERVICE: 08/03/2018 ATTENDING PRIMARY CARE PHYSICIAN: Alfie Funes MD PREOPERATIVE DIAGNOSES: Symptomatic left inguinal hernia, symptomatic epigastric incisional hernia, achalasia. POSTOPERATIVE DIAGNOSES: Small and indirect left inguinal hernia with preperitoneal fat within the hernia sac. Small incisional hernia from a previous trocar incision in the epigastric region. The ovaries appeared to be hypoplastic and solid in appearance. An intraoperative consultation was made with gynecology, which appeared to be normal physiologic. Reflux esophagitis stage II, achalasia, small hiatal hernia, mild to moderate gastritis. PROCEDURES: 1. Laparoscopic left inguinal hernia repair with mesh. 2. Laparoscopic ventral abdominal incisional hernia with mesh. 3. EGD with biopsy. 4. Balloon dilatation. SURGEON: Pio Guajardo MD ANESTHESIA: General endotracheal. ESTIMATED BLOOD LOSS: Minimal. FINDINGS: A small indirect left inguinal hernia with preperitoneal fat within the hernia sac. A small ventral abdominal incisional hernia from a previous trocar placement. Bilateral ovaries were apparent and appeared to be solid in appearance. An intraoperative consultation BINDER STRIPPER HAND was made, which appeared to be normal physiologic changes. Washings were sent for cytology. DISPOSITION: The patient tolerated the procedure well. INDICATIONS: The patient is a 53-year-old female with epigastric pain as well as dysphagia. She reports crampy abdominal pain after taking food bolus and fullness sensation , which were eventually resolved on its own. This was initially infrequent; however, worsened over time. EGD was performed, which did show a hiatal hernia approximately 2 cm in size as well as mild gastritis. Biopsies were negative for Martin esophagus as well as H. pylori. She eventually underwent an esophageal manometry study, which showed normal waveform contractions of the esophagus; however, increased tone of the lower esophageal sphincter for longer periods of time more consistent with an achalasia. She also has a symptomatic left inguinal hernia, which is reducible; however, tender to palpation. She also reports of development of an incisional hernia in the epigastric region from a previous trocar placement for laparoscopic surgery. These were both reducible; however, tender to palpation. DESCRIPTION OF PROCEDURE: The patient was brought to the operating room, laid supine on the table. After adequate IV pain and sedating medications, general endotracheal intubation, the abdomen was prepped and draped in standard surgical fashion. A 0.5% Marcaine with epinephrine was used to anesthetize the overlying skin in the infraumbilical rim and a small transverse skin incision made using a #15 blade. The abdominal wall was then retracted anteriorly and a Veress needle inserted with low opening pressure of 0 mmHg and the abdomen was insufflated to 15 mmHg pressure. The Veress needle removed and a 10 mm Xcel trocar placed followed by a 10 mm 45-degree angle laparoscope visualizing the peritoneal cavity. A 4-quadrant abdominal exploration was performed. There was a small left inguinal hernia identified, which appeared to be an indirect hernia. There was no right hernia component identified. There was a small incisional hernia identified in the epigastric region as well. The patient is status post hysterectomy in 2005 and she has bilateral ovary cysts as well as tubes. These appeared to be white and solid in appearance and it was decided to proceed with intraoperative consultation with BINDER STRIPPER HAND. However, the report was that these were normal physiologic changes for age. Washings were sent for cytology in the pelvis and bilateral ovaries. We then proceeded to place bilateral 5 mm ports under direct visualization after the skin and peritoneal lining were anesthetized using 0.5% Marcaine with epinephrine and a transverse skin incision made using a #15 blade. The patient was then placed in Trendelenburg position. Wedge of mesentery was then opened using Sonicision and we first proceeded with lateral dissection towards the conjoined tendon and inguinal ligament. We then proceeded medially towards the conjoint to the Enrike's ligament. We then proceeded with inferior dissection taking the hernia sac as well as the preperitoneal fat within the defect. Good hemostasis was observed and a medium sized Bard 3DMax polypropylene mesh was placed through the 10 mm port and tacked to Enrike's ligament medially and conjoint tendon laterally. The peritoneal lining was then placed over the mesh and a few tacks placed to hold it in place with visualization of good hemostasis. We then turned our attention to repair of the small ventral abdominal incisional hernia in the epigastric region. There was preperitoneal fat within the hernia sac, which was then dissected out. Through this defect, a 4.3 mm circular Bard polypropylene mesh was placed and a few absorbable tacks placed into the fascia to hold it into place. Good hemostasis was observed. The 10 mm port site fascia and peritoneum were then closed under direct visualization using a Humberto-Rhina device and 0 Vicryl suture. The abdomen was desufflated and the remaining ports removed. All skin incisions were closed using 4-0 Monocryl running subcuticular sutures. Wounds were then cleaned and covered with Dermabond. We then proceeded with EGD and dilatation portion of the procedure. The mouthpiece was applied. The endoscope was placed in the mouth, visualizing the pharynx and hypopharyngeal region. Vocal cords, epiglottis and vallecula identified and appeared to be normal. The endoscope was then gently intubated at the esophageal opening and esophagus insufflated. The endoscope was then advanced to the first, second and third portion of the esophagus. At the level of the GE junction, a reflux esophagitis stage II identified. There were no ulcers or strictures identified in this region; however, there did appear to be hypertonicity of the lower esophageal sphincter for an extended period of time consistent with achalasia. A biopsy was taken of the GE junction using forceps with visualization of good hemostasis. The endoscope was then easily advanced into the stomach and the endoscope retroflexed again visualizing a small hiatal hernia. This measurement was more appropriately approximately 1.5 cm in size. There was a mild to moderate gastritis. No ulcers, polyps or any neoplasms identified. A biopsy was taken of the antrum with visualization of good hemostasis. The endoscope was then advanced to the pylorus into the first and second portion of the duodenum, which appeared normal with no distal obstructions. A balloon catheter was then placed near the GE junction and insufflated to 2 atmosphere of pressure with minimal resisitance. We then increased to 4 then 6 atmospheres with mild to moderate resistance then left this in place for 60 seconds. The balloon was then desufflated and removed with no bleeding nor mucocal tears. The endoscope was then slowly withdrawn while taking a second look and suctioning of residual air with no additional findings. The patient tolerated the procedure well. We will recommend the necessary lifestyle and diet accommodation including small and more frequent meals, avoidance of eating at night as well as head elevation while lying supine. She also needs to avoid caffeinated beverages, spicy, greasy and acidic foods. If she becomes symptomatic again, we will proceed with repeat dilatations. We will have followup in the office in approximately 2 weeks. Job ID: [id number] DocumentID: [id number] Dictated Date: 08/03/2018 12:55:26 Lead Installer Date: 08/04/2018 00:25:11 Dictated By: PIO GUAJARDO MD MTDD
--- NOTE | 2018-08-04 10:55 | CONSULTATION REPORT ---
DATE OF SERVICE: 08/03/2018 This is an intraoperative consult from Dr. Chandler Tapia. REASON FOR CONSULTATION: Evaluate the patient's ovaries. HISTORY OF PRESENT ILLNESS: The patient is a 53-year-old white female patient of Dr. Arteaga undergoing laparoscopic surgery at his hands. In the course of that surgery, he evaluated her pelvis identifying the ovaries. The ovaries were suspended well up on each side of the pelvis with a portion of the fallopian tube obscuring complete visualization of the ovary. The portion of the ovary that was visible seemed to be suspicious appearing. I was consulted intraoperatively to evaluate the patient' s ovaries. At the time of the consultation, which was shortly after 1 p.m. on this date, the patient was asleep in the operating room with laparoscopic ports in place with Dr. Arteaga scrubbed in. He was finished with his laparoscopic procedure and had asked that I inspect this patient's ovaries. He directed the laparoscope to the patient's left ovary, which was partially covered by normal appearing fallopian tube. The ovary was well suspended up on the left pelvic brim. The ovary had a normal and somewhat atretic appearance. There was no abnormal appearing pathology visually. The laparoscope was rotated to the right pelvic side wall. Likewise, the right ovary was adherent to the pelvic side wall from its suspension at the time of this patient's hysterectomy. This patient was well known to me as I had performed her hysterectomy. Hysterectomy was a total abdominal hysterectomy with conservation of both ovaries. At the time of that surgery I would have supported the ovaries well up on the pelvic sidewall at or near the pelvic brim as was seen by Dr. Arteaga. So the position of the ovaries was as to be expected. This patient at 53 is likely menopausal, which would be consistent with the atretic appearance of her ovaries. Dr. Arteaga had obtained pelvic washings and nothing further was warranted in regard to evaluation of the ovaries or the pelvis at this time. Again, my recommendation was to leave the ovaries as is, as they appeared perfectly normal. Job ID: [id number] DocumentID: [id number] Dictated Date: 08/04/2018 09:51:26 Certified Cytotechnologist Date: 08/04/2018 10:54:05 Dictated By: WHITNEY BARRERA MD MTDD
== END 2018-08-03 15:15 | disposition home or self-care (01) ==
LOC: SDC 09:06
PROVIDERS: ATTEND Surgery
DX: K40.90 Unilateral inguinal hernia, without obstruction or gangrene, not specified as recurrent (principal); K43.2 Incisional hernia without obstruction or gangrene; K21.0 Gastro-esophageal reflux disease with esophagitis; K44.9 Diaphragmatic hernia without obstruction or gangrene; K22.0 Achalasia of cardia; K29.70 Gastritis, unspecified, without bleeding; E06.3 Autoimmune thyroiditis; G57.92 Unspecified mononeuropathy of left lower limb; F41.9 Anxiety disorder, unspecified; Z79.82 Long term (current) use of aspirin; Z79.899 Other long term (current) drug therapy
CPT/HCPCS: 36415; 85025; 87081; 88112; 88305; 94664

== ENCOUNTER 2018-12-03 20:31 | Emergency (ER) | payer BC ==
[~2018-12-03] VITALS: Ht 157.5 cm; Wt 77.1 kg
[~2018-12-03 20:31] MED LIST changes: +HYDR-34 PO
--- OUTSIDE RECORDS SUMMARY | 2018-12-03 20:38 | XMS REPORT | Continuity of Care Document ---
Author Organization Unknown Address Unknown Allergies Active Description Code Type Severity Reaction Onset Reported/Identified Relationship to Patient Clinical Status Yes cephalexin [id number] Drug Allergy Unknown N/A 11/15/2005 Yes erythromycin base [id number] Drug Allergy Unknown N/A 06/27/2018 Yes latex [id number] Drug Allergy Unknown N/A 06/27/2018 Yes Penicillins [id number] Drug Allergy Unknown RASH 06/27/2018 Medications There [...] NEOP-OVARY 05/08/2012 Ot V58.61 ANTICOAGULANTS,LT,CURRENT USE 04/26/2013 VINOD CAICEDO MD Ot 368.2 DIPLOPIA 04/26/2013 VINOD CAICEDO MD [...] 09/16/2014 Ot 789.05 09/16/2014 MERLIN ABERNATHY, NELLIE Lan Ot 244.9 09/16/2014 MERLIN ABERNATHY, [facility] Ot 336.9 09/16/2014 MERLIN ABERNATHY, [facility] Ot 722.10 09/16/2014 MERLIN ABERNATHY, [facility] Ot 722.11 09/16/2014 MERLIN ABERNATHY, [facility] Ot 793.89 09/16/2014 MERLIN ABERNATHY, [facility] Ot V16.3 09/16/2014 MERLIN ABERNATHY, [facility] Ot 244.9 09/25/2014 MERLIN ABERNATHY, [facility] Ot 440.20 09/25/2014 MERLIN ABERNATHY, [facility] Ot 440.4 09/25/2014 MERLIN ABERNATHY, [facility] Ot 729.5 09/25/2014 MERLIN ABERNATHY, [facility] Ot V12.51 10/02/2014 MERLIN AEBRNATHY, [facility] Ot 729.5 10/02/2014 MERLIN ABERNATHY, [facility] Ot V12.51 10/09/2014 MERLIN ABERNATHY, [facility] Ot 440.20 10/09/2014 MERLIN ABERNATHY, [facility] Ot 440.4 10/09/2014 MERLIN ABERNATHY, [facility] Ot 729.5 10/09/2014 MERLIN ABERNATHY, [facility] Ot V12.51 11/18/2015 Ot 444.22 11/18/2015 Ot [...] 01/07/2016 NELLIE BOYER MD Ot 440.20 ATHEROSCLEROSIS ASSINIBOINE AND [place] TRIBES ARTERIES EXTREMIT 01/07/2016 NELLIE BOYER MD Ot [...] Ot 336.9 SPINAL CORD DISEASE NOS 09/16/2016 MERLIN ABERNATHY, NELLIE [place] Ot 722.10 LUMBAR DISC DISPLACEMENT 09/16/2016 NELLIE [...] 09/16/2016 NELLIE BOYER MD Ot 440.20 ATHEROSCLEROSIS ASSINIBOINE AND [place] TRIBES ARTERIES EXTREMIT 09/16/2016 NELLIE BOYER MD Ot 440.4 CHRONIC TOTAL OCCLUSION OF ARTERY OF THE 09/16/2016 NELLIE BOYER MD Ot 729.5 PAIN IN LIMB 09/16/2016 NELLIE BOYER MD Ot V12.51 HX-VENOUS THROMBOSIS EMBOLISM 04/24/2017 MARIA VICTORIA ALBARRAN MD Ot M79.672 PAIN IN LEFT FOOT 04/27/2017 MARIA VICTORIA ALBARRAN MD Ot M79.672 PAIN IN LEFT FOOT 05/04/2017 MARIA VICTORIA ALBARRAN MD Ot M25.572 PAIN IN LEFT ANKLE AND JOINTS OF LEFT FO 05/04/2017 MARIA VICTORIA ALBARRAN MD Ot M79.672 PAIN IN LEFT FOOT 05/31/2017 MARIA VICTORIA ALBARRAN MD Ot N63.11 UNSPECIFIED [...] 06/07/2017 Ot 789.05 ABDOMINAL PAIN, PERIUMBILIC 06/07/2017 NELLIE BOYER MD Ot 244.9 HYPOTHYROIDISM NOS 06/07/2017 MERLIN ABERNATHY, NELLIE [place] Ot 336.9 SPINAL CORD DISEASE NOS 06/07/2017 NELLIE BOYER MD Ot 722.10 LUMBAR DISC DISPLACEMENT 06/07/2017 NELLIE BOYER MD Ot 722.11 THORACIC DISC DISPLACMNT 06/07/2017 NELLIE BOYER MD Ot 793.89 OTH (ABN) FINDINGS ON RADIOLOGICAL EXAMI 06/07/2017 NELLIE BOYER MD Ot V16.3 FAMILY HX-BREAST MALIG 06/07/2017 NELLIE BOYER MD Ot 244.9 HYPOTHYROIDISM NOS 06/07/2017 NELLIE BOYER MD Ot 729.5 PAIN IN LIMB 06/07/2017 NELLIE BOYER MD Ot V12.51 HX-VENOUS THROMBOSIS EMBOLISM 06/07/2017 NELLIE BOYER MD Ot 440.20 ATHEROSCLEROSIS ASSINIBOINE AND [place] TRIBES ARTERIES EXTREMIT 06/07/2017 NELLIE BOYER MD Ot 440.4 CHRONIC TOTAL OCCLUSION OF ARTERY OF THE 06/07/2017 ENLLIE BOYER MD Ot 729.5 PAIN IN LIMB 06/07/2017 NELLIE BOYER MD Ot V12.51 HX-VENOUS THROMBOSIS EMBOLISM 06/07/2017 MARIA VICTORIA ALBARRAN MD Ot M25.572 PAIN [...] Vega Ot N20.0 CALCULUS OF KIDNEY 09/25/2017 RANDALLNICHOLAS N [employer] SUPERVISOR Ot R05 COUGH 10/06/2017 Ot 285.9 ANEMIA [...] OTH (ABN) FINDINGS ON RADIOLOGICAL EXAMI 10/06/2017 MERLIN ABERNATHY, NELLIE [place] Ot V16.3 FAMILY HX-BREAST MALIG 10/06/2017 NELLIE BOYER MD Ot 244.9 HYPOTHYROIDISM NOS 10/06/2017 MERLIN ABERNATHY, NELLIE [place] Ot 729.5 PAIN IN LIMB 10/06/2017 MERLIN ABERNATHY, NELLIE [place] Ot V12.51 HX-VENOUS THROMBOSIS EMBOLISM 10/06/2017 NELLIE BOYER MD Ot 440.20 ATHEROSCLEROSIS ASSINIBOINE AND [place] TRIBES ARTERIES EXTREMIT 10/06/2017 NELLIE BOYER MD Ot [...] CALCULUS OF KIDNEY 10/06/2017 NICHOLAS RANDALL N [employer]LECTRICAL PLUMBING SUPERVISOR Ot R05 COUGH 10/09/2017 MARIA VICTORIA ALBARRAN [...] 11/10/2017 Ot 789.05 ABDOMINAL PAIN, PERIUMBILIC 11/10/2017 MERLIN ABERNATHY, NELLIE [place] Ot 244.9 HYPOTHYROIDISM NOS 11/10/2017 NELLIE BOYER MD Ot 336.9 SPINAL CORD DISEASE NOS 11/10/2017 NELLIE BOYER MD Ot 722.10 LUMBAR DISC DISPLACEMENT 11/10/2017 NELLIE BOYER MD Ot 722.11 THORACIC DISC DISPLACMNT 11/10/2017 NELLIE BOYER MD Ot 793.89 OT (ABN) FINDINGS ON RADIOLOGICAL EXAMI 11/10/2017 NELLIE BOYER MD Ot V16.3 FAMILY HX-BREAST MALIG 11/10/2017 NELLIE BOYER MD Ot 244.9 HYPOTHYROIDISM NOS 11/10/2017 NELLIE BOYER MD Ot 729.5 PAIN IN LIMB 11/10/2017 NELLIE BOYER MD Ot V12.51 HX-VENOUS THROMBOSIS EMBOLISM 11/10/2017 NELLIE BOYER MD Ot 440.20 ATHEROSCLEROSIS ASSINIBOINE AND [place] TRIBES ARTERIES EXTREMIT 11/10/2017 NELLIE BOYER MD Ot [...] CALCULUS OF KIDNEY 11/10/2017 NICHOLAS RANDALL N ELECTRICAL PLUMBING SUPERVISOR Ot R05 COUGH 11/10/2017 MARIA VICTORIA ALBARRAN [...] 11/10/2017 Ot 789.05 ABDOMINAL PAIN, PERIUMBILIC 11/10/2017 MERLIN ABERNATHY, NELLIE [place] Ot 244.9 HYPOTHYROIDISM NOS 11/10/2017 NELLIE BOYER [...] 11/10/2017 NELLIE BOYER MD Ot 440.20 ATHEROSCLEROSIS ASSINIBOINE AND [place] TRIBES ARTERIES EXTREMIT 11/10/2017 NELLIE BOYER MD Ot [...] CALCULUS OF KIDNEY 11/10/2017 NICHOLAS RANDALL N ELECT[employer]ICAL PLUMBING SUPERVISOR Ot R05 COUGH 11/10/2017 MARIA VICTORIA ALBARRAN [...] 11/23/2017 Ot 789.05 ABDOMINAL PAIN, PERIUMBILIC 11/23/2017 NELLIE BOYER MD Ot 244.9 HYPOTHYROIDISM NOS 11/23/2017 NELLIE BOYER MD Ot 336.9 SPINAL CORD DISEASE NOS 11/23/2017 [...] Ot V12.51 HX-VENOUS THROMBOSIS EMBOLISM 11/23/2017 NELLIE OBYER MD Ot 440.20 ATHEROSCLEROSIS ASSINIBOINE AND [place] TRIBES ARTERIES EXTREMIT 11/23/2017 NELLIE BOYER MD Ot [...] URETHRAL DISORDER, UNSPECIFIED 11/23/2017 FREDDIE ABERNATHY, ARTURO A Ot N20.0 CALCULUS OF KIDNEY 11/23/2017 NICHOLAS RANDALL N [employer]LECT[employer]UMBING SUPERVISOR Ot R05 COUGH 11/23/2017 MARIA VICTORIA ALBARRAN [...] ENCOUNTER FOR OTHER PREPROCEDURAL EXAMIN 06/21/2018 PIO GUAAJRDO MD, Ot Z01.818 ENCOUNTER FOR OTHER PREPROCEDURAL EXAMIN 06/27/2018 PIO GUAJARDO MD Ot E06.3 AUTOIMMUNE THYROIDITIS 06/27/2018 PIO GUAJARDO MD Ot E78.00 PURE HYPERCHOLESTEROLEMIA, UNSPECIFIED 06/27/2018 PIO GUAJARDO MD Ot K21.0 GASTRO-ESOPHAGEAL REFLUX DISEASE WITH ES 06/27/2018 PIO GUAJARDO MD Ot K29.70 GASTRITIS, UNSPECIFIED, WITHOUT BLEEDING 06/27/2018 PIO GUAJARDO MD, Ot K44.9 DIAPHRAGMATIC HERNIA WITHOUT OBSTRUCTION 06/27/2018 PIO GUAJARDO MD Ot K64.1 SECOND DEGREE HEMORRHOIDS 06/27/2018 PIO GUAJARDO MD Ot Z12.11 ENCOUNTER FOR SCREENING FOR MALIGNANT NE 06/27/2018 PIO GUAJARDO MD, Ot Z79.82 CUSTODIAL (CURRENT) USE OF ASPIRIN 06/27/2018 PIO GUAJARDO MD Ot Z79.899 OTHER LONG WINDER TENDER (CURRENT) DRUG THERAPY 06/27/2018 PIO GUAJARDO MD, Ot Z86.718 PERSONAL HISTORY OF OTHER VENOUS THROMBO 06/29/2018 PIO GUAJARDO MD, Ot E06.3 AUTOIMMUNE THYROIDITIS 06/29/2018 PIO GUAJARDO [...] NE 06/29/2018 PIO GUAJARDO MD, Ot Z79.82 CUSTODIAL (CURRENT) USE OF ASPIRIN 06/29/2018 PIO GUAJARDO MD, Ot Z79.899 OTHER CUSTODIAL (CURRENT) DRUG THERAPY 06/29/2018 PIO GUAJARDO MD, [...] 07/31/2018 NELLIE BOYER MD Ot 440.20 ATHEROSCLEROSIS ASSINIBOINE AND [place] TRIBES ARTERIES EXTREMIT 07/31/2018 NELLIE BOYER MD Ot 440.4 CHRONIC TOTAL OCCLUSION OF ARTERY OF THE 07/31/2018 NELLIE BOYER MD Ot 729.5 PAIN IN LIMB 07/31/2018 MERLIN ABERNATHY, NELLIE [place] Ot V12.51 HX-VENOUS THROMBOSIS EMBOLISM 07/31/2018 MARIA VICTORIA ALBARRAN MD Ot M25.572 PAIN IN LEFT ANKLE AND JOINTS OF LEFT FO 07/31/2018 MARIA VICTORIA ALBARRAN MD, Ot M79.672 PAIN IN LEFT FOOT 07/31/2018 MARIA VICTORIA ALBARRAN MD Ot N63.11 UNSPECIFIED LUMP IN THE RIGHT BREAST, UP 07/31/2018 MARIA VICTORIA ALBARRAN MD, Ot K40.90 UNIL INGUINAL HERNIA, W/O OBST OR GANGR, 07/31/2018 MARIA VICTORIA ALBARRAN MD, Ot N36.9 URETHRAL DISORDER, UNSPECIFIED 07/31/2018 FREDDIE ABERNATHY, ARTURO Vega Ot N20.0 CALCULUS OF KIDNEY 07/31/2018 NICHOLAS RANDALL ELECTRICAL PLUMBING SUPERVISOR Ot R05 COUGH 07/31/2018 MARIA VICTORIA ALBARRAN MD, Ot K21.9 GASTRO-ESOPHAGEAL REFLUX DISEASE WITHOUT 07/31/2018 MARIA VICTORIA ALBARRAN MD, Ot K22.4 DYSKINESIA OF ESOPHAGUS 07/31/2018 MARIA VICTORIA ALBARRAN MD, Ot N63.11 UNSPECIFIED LUMP IN THE RIGHT BREAST, UP 07/31/2018 MARIA VICTORIA ALBARRAN MD Ot N64.59 OTHER SIGNS AND SYMPTOMS IN BREAST 07/31/2018 MARIA VICTORIA ALBARRAN MD Ot Z98.82 BREAST IMPLANT STATUS 08/02/2018 PIO GUAJARDO MD, Ot Z01.818 ENCOUNTER FOR OTHER PREPROCEDURAL EXAMIN 08/03/2018 PIO GUAJARDO MD Ot E06.3 AUTOIMMUNE THYROIDITIS 08/03/2018 PIO GUAJARDO MD Ot F41.9 ANXIETY DISORDER, UNSPECIFIED 08/03/2018 PIO GUAJARDO MD, Ot G57.92 UNSPECIFIED MONONEUROPATHY OF LEFT LOWER 08/03/2018 PIO GUAJARDO MD Ot K21.0 GASTRO-ESOPHAGEAL REFLUX DISEASE WITH ES 08/03/2018 PIO GUAJARDO MD, Ot 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 08/03/2018 PIO GUAJARDO MD Ot K29.70 GASTRITIS, UNSPECIFIED, WITHOUT BLEEDING 08/03/2018 PIO GUAJARDO MD Ot K40.90 UNIL INGUINAL HERNIA, W/O OBST OR GANGR, 08/03/2018 PIO GUAJARDO MD Ot K43.2 INCISIONAL HERNIA WITHOUT OBSTRUCTION OR 08/03/2018 PIO GUAJAROD MD Ot K44.9 DIAPHRAGMATIC HERNIA WITHOUT OBSTRUCTION 08/03/2018 PIO GUAJARDO MD Ot Z79.82 LONG WINDER TENDER (CURRENT) USE OF ASPIRIN 08/03/2018 PIO GUAJARDO MD Ot Z79.899 OTHER LONG WINDER TENDER (CURRENT) DRUG THERAPY 08/09/2018 PIO GUAJARDO MD Ot E06.3 AUTOIMMUNE THYROIDITIS 08/09/2018 PIO GUAJARDO MD, Ot F41.9 ANXIETY DISORDER, UNSPECIFIED 08/09/2018 PIO GUAJARDO MD Ot G57.92 UNSPECIFIED MONONEUROPATHY OF LEFT LOWER 08/09/2018 PIO GUAJARDO MD Ot K21.0 GASTRO-ESOPHAGEAL REFLUX DISEASE WITH ES 08/09/2018 PIO GUAJARDO MD Ot 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 08/09/2018 PIO GUAJARDO MD Ot K29.70 GASTRITIS, UNSPECIFIED, WITHOUT BLEEDING 08/09/2018 PIO GUAJARDO MD Ot K40.90 UNIL INGUINAL HERNIA, W/O OBST OR GANGR, 08/09/2018 PIO GUAJARDO MD, Ot K43.2 INCISIONAL HERNIA WITHOUT OBSTRUCTION OR 08/09/2018 PIO GUAJARDO MD Ot K44.9 DIAPHRAGMATIC HERNIA WITHOUT OBSTRUCTION 08/09/2018 PIO GUAJARDO MD Ot Z79.82 LONG WINDER TENDER (CURRENT) USE OF ASPIRIN 08/09/2018 PIO GUAJARDO MD Ot Z79.899 OTHER LONG WINDER TENDER (CURRENT) DRUG THERAPY 08/09/2018 NELLIE BOYER MD Ot 336.9 SPINAL CORD DISEASE NOS 08/09/2018 NELLIE BOYER MD Ot 722.10 LUMBAR DISC DISPLACEMENT 08/09/2018 NELLIE BOYER MD Ot 722.11 THORACIC DISC DISPLACMNT 08/09/2018 NELLIE BOYER MD Ot 793.89 OTH (ABN) FINDINGS ON RADIOLOGICAL EXAMI 08/09/2018 NELLIE BOYER MD Ot V16.3 FAMILY HX-BREAST MALIG 08/09/2018 NELLIE BOYER MD Ot 244.9 HYPOTHYROIDISM NOS 08/09/2018 NELLIE BOYER MD Ot 729.5 PAIN IN LIMB 08/09/2018 NELLIE BOYER MD Ot V12.51 HX-VENOUS THROMBOSIS EMBOLISM 08/09/2018 NELLIE BOYER MD Ot 440.20 ATHEROSCLEROSIS ASSINIBOINE AND [place] TRIBES ARTERIES EXTREMIT 08/09/2018 NELLIE BOYER MD Ot 440.4 CHRONIC TOTAL OCCLUSION OF ARTERY OF THE 08/09/2018 NELLIE BOYER MD Ot 729.5 PAIN IN LIMB 08/09/2018 NELLIE BOYER MD Ot V12.51 HX-VENOUS THROMBOSIS EMBOLISM 08/09/2018 MARIA VICTORIA ALBARRAN MD Ot M25.572 PAIN IN LEFT ANKLE AND JOINTS OF LEFT FO 08/09/2018 MARIA VICTORIA ALBARRAN MD, Ot M79.672 PAIN IN LEFT FOOT 08/09/2018 MARIA VICTORIA ALBARRAN MD, Ot N63.11 UNSPECIFIED LUMP IN THE RIGHT BREAST, UP 08/09/2018 MARIA VICTORIA ALBARRAN MD, Ot K40.90 UNIL INGUINAL HERNIA, W/O OBST OR GANGR, 08/09/2018 MARIA VICTORIA ALBARRAN MD, Ot N36.9 URETHRAL DISORDER, UNSPECIFIED 08/09/2018 FREDDIE ABERNATHY, ARTURO Vega Ot N20.0 CALCULUS OF KIDNEY 08/09/2018 NICHOLAS RANDALL N ELECTRICAL PLUMBING SUPERVISOR Ot R05 COUGH 08/09/2018 MARIA VICTORIA ALBARRAN MD, Ot K21.9 GASTRO-ESOPHAGEAL REFLUX DISEASE WITHOUT 08/09/2018 MARIA VICTORIA ALBARRAN MD, Ot K22.4 DYSKINESIA OF ESOPHAGUS 08/09/2018 MARIA VICTORIA ALBARRAN MD Ot N63.11 UNSPECIFIED LUMP IN THE RIGHT BREAST, UP 08/09/2018 MARIA VICTORIA ALBARRAN MD Ot N64.59 OTHER SIGNS AND SYMPTOMS IN BREAST 08/09/2018 MARIA VICTORIA ALBARRAN MD, Ot Z98.82 BREAST IMPLANT STATUS 08/11/2018 PIO GUAJRADO MD, Ot E06.3 AUTOIMMUNE THYROIDITIS 08/11/2018 PIO GUAJARDO MD, Ot F41.9 ANXIETY DISORDER, UNSPECIFIED 08/11/2018 PIO GUAJARDO MD, Ot G57.92 UNSPECIFIED MONONEUROPATHY OF LEFT LOWER 08/11/2018 PIO GUAJARDO MD, Ot K21.0 GASTRO-ESOPHAGEAL REFLUX DISEASE WITH ES 08/11/2018 PIO GUAJARDO MD, Ot 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 08/11/2018 PIO GUAJARDO MD, Ot K29.70 GASTRITIS, UNSPECIFIED, WITHOUT BLEEDING 08/11/2018 PIO GUAJARDO MD, Ot K40.90 UNIL INGUINAL HERNIA, W/O OBST OR GANGR, 08/11/2018 PIO GUAJARDO MD, Ot K43.2 INCISIONAL HERNIA WITHOUT OBSTRUCTION OR 08/11/2018 PIO GUAJARDO MD, Ot K44.9 DIAPHRAGMATIC HERNIA WITHOUT OBSTRUCTION 08/11/2018 PIO GUAJARDO MD, Ot Z79.82 CUSTODIAL (CURRENT) USE OF ASPIRIN 08/11/2018 PIO GUAJARDO MD, Ot Z79.899 OTHER CUSTODIAL (CURRENT) DRUG THERAPY 09/26/2018 NELLIE BOYER MD Ot 793.89 OTH (ABN) FINDINGS ON RADIOLOGICAL EXAMI 09/26/2018 NELLIE BOYER MD Ot V16.3 FAMILY HX-BREAST MALIG 09/26/2018 NELLIE BOYER MD Ot 244.9 HYPOTHYROIDISM NOS 09/26/2018 NELLEI BOYER MD Ot 729.5 PAIN IN LIMB 09/26/2018 NELLIE BOYER MD Ot V12.51 HX-VENOUS THROMBOSIS EMBOLISM 09/26/2018 NELLIE BOYER MD Ot 440.20 ATHEROSCLEROSIS ASSINIBOINE AND [place] TRIBES ARTERIES EXTREMIT 09/26/2018 NELLIE BOYER MD Ot 440.4 CHRONIC TOTAL OCCLUSION OF ARTERY OF THE 09/26/2018 NELLIE BOYER MD Ot 729.5 PAIN IN LIMB 09/26/2018 NELLIE BOYER MD Ot V12.51 HX-VENOUS THROMBOSIS EMBOLISM 09/26/2018 MARIA VICTORIA ALBARRAN MD Ot M25.572 PAIN IN LEFT ANKLE AND JOINTS OF LEFT FO 09/26/2018 MARIA VICTORIA ALBARRAN MD Ot M79.672 PAIN IN LEFT FOOT 09/26/2018 MARIA VICTORIA ALBARRAN MD Ot N63.11 UNSPECIFIED LUMP IN THE RIGHT BREAST, UP 09/26/2018 MARIA VICTORIA ALBARRAN MD Ot K40.90 UNIL INGUINAL HERNIA, W/O OBST OR GANGR, 09/26/2018 MARIA VICTORIA ALBARRAN MD Ot N36.9 URETHRAL DISORDER, UNSPECIFIED 09/26/2018 FREDDIE ABERNATHY, ARTURO Vega Ot N20.0 CALCULUS OF KIDNEY 09/26/2018 NICHOLAS RANDALL N ELECTRICAL PLUMBING SUPERVISOR Ot R05 COUGH 09/26/2018 MARIA VICTORIA ALBARRAN MD Ot K21.9 GASTRO-ESOPHAGEAL REFLUX DISEASE WITHOUT 09/26/2018 MARIA VICTORIA ALBARRAN MD Ot K22.4 DYSKINESIA OF ESOPHAGUS 09/26/2018 MARIA VICTORIA ALBARRAN MD, Ot N63.11 UNSPECIFIED LUMP IN THE RIGHT BREAST, UP 09/26/2018 MARIA VICTORIA ALBARRAN MD Ot N64.59 OTHER SIGNS AND SYMPTOMS IN BREAST 09/26/2018 MARIA VICTORIA ALBARRAN MD Ot Z98.82 BREAST IMPLANT STATUS 12/03/2018 NELLIE BOYER MD Ot 793.89 OTH (ABN) FINDINGS ON RADIOLOGICAL EXAMI 12/03/2018 NELLIE BOYER MD Ot V16.3 FAMILY HX-BREAST MALIG 12/03/2018 NELLIE BOYER MD Ot 244.9 HYPOTHYROIDISM NOS 12/03/2018 NELLIE BOYER MD Ot 729.5 PAIN IN LIMB 12/03/2018 NELLIE BOYER MD Ot V12.51 HX-VENOUS THROMBOSIS EMBOLISM 12/03/2018 NELLIE BOYER MD Ot 440.20 ATHEROSCLEROSIS ASSINIBOINE AND [place] TRIBES ARTERIES EXTREMIT 12/03/2018 NELLIE BOYER MD Ot 440.4 CHRONIC TOTAL OCCLUSION OF ARTERY OF THE 12/03/2018 NELLIE BOYER MD Ot 729.5 PAIN IN LIMB 12/03/2018 NELLIE BOYER MD Ot V12.51 HX-VENOUS THROMBOSIS EMBOLISM 12/03/2018 MARIA VICTORIA ALBARRAN MD Ot M25.572 PAIN IN LEFT ANKLE AND JOINTS OF LEFT FO 12/03/2018 MARIA VICTORIA ALBARRAN MD Ot M79.672 PAIN IN LEFT FOOT 12/03/2018 MARIA VICTORIA ALBARRAN MD Ot N63.11 UNSPECIFIED LUMP IN THE RIGHT BREAST, UP 12/03/2018 MARIA VICTORIA ALBARRAN MD Ot K40.90 UNIL INGUINAL HERNIA, W/O OBST OR GANGR, 12/03/2018 MARIA VICTORIA ALBARRAN MD Ot N36.9 URETHRAL DISORDER, UNSPECIFIED 12/03/2018 FREDDIE ABERNATHY, ARTURO Vega Ot N20.0 CALCULUS OF KIDNEY 12/03/2018 NICHOLAS RANDALL APRN Ot R05 COUGH 12/03/2018 MARIA VICTORIA ALBARRAN MD, Ot K21.9 GASTRO-ESOPHAGEAL REFLUX DISEASE WITHOUT 12/03/2018 MARIA VICTORIA ALBARRAN MD Ot K22.4 DYSKINESIA OF ESOPHAGUS 12/03/2018 MARIA VICTORIA ALBARRAN MD Ot N63.11 UNSPECIFIED LUMP IN THE RIGHT BREAST, UP 12/03/2018 MARIA VICTORIA ALBARRAN MD Ot N64.59 OTHER SIGNS AND SYMPTOMS IN BREAST 12/03/2018 MARIA VICTORIA ALBARRAN MD Ot Z98.82 BREAST IMPLANT STATUS Procedures Code Description Performed By Performed On [...] 02/13/2010 99.10 INJECT/INFUSE THROMBOLYTIC AGENT 02/13/2010 Results Test Result Range Methicillin resistant Staphylococcus aureus (MRSA) screening culture - 09:31 Methicillin resistant Staphylococcus aureus (MRSA) screening culture NEG NRG Complete blood count (CBC) with automated white blood cell (WBC) differential - 08/03/18 10:00 Blood leukocytes automated count (number/volume) 5.1 10*3/uL 4.3-11.0 Blood erythrocytes automated count (number/volume) 4.24 10*6/uL 4.35-5.85 Venous blood hemoglobin measurement (mass/volume) 12.7 g/dL 11.5-16.0 Blood hematocrit (volume fraction) 38 % 35-52 Automated erythrocyte mean corpuscular volume 90 [foz_us] 80-99 Automated erythrocyte mean corpuscular hemoglobin (mass per erythrocyte) 30 pg 25-34 Automated erythrocyte mean corpuscular hemoglobin concentration measurement ( mass/volume) 33 g/dL 32-36 Automated erythrocyte distribution width ratio 13.9 % 10.0-14.5 Automated blood platelet count (count/volume) 284 10*3/uL 130-400 Automated blood platelet mean volume measurement 10.2 [foz_us] 7.4-10.4 Automated blood neutrophils/100 leukocytes 52 % 42-75 Automated blood lymphocytes/100 leukocytes 37 % 12-44 Blood monocytes/100 leukocytes 10 % 0-12 Automated blood eosinophils/100 leukocytes 1 % 0-10 Automated blood basophils/100 leukocytes 0 % 0-10 Blood neutrophils automated count (number/volume) 2.6 10*3 1.8-7.8 Blood lymphocytes automated count (number/volume) 1.9 10*3 1.0-4.0 Blood monocytes automated count (number/volume) 0.5 10*3 0.0-1.0 Automated eosinophil count 0.1 10*3/uL 0.0-0.3 Automated blood basophil count (count/volume) 0.0 10*3/uL 0.0-0.1 Encounters ACCT No. Visit Date/Time Discharge Status Pt. Type Provider Facility Loc./Unit Complaint [id number] 08/03/2018 09:06:00 08/03/2018 15:15:00 DIS Outpatient PIO GUAJARDO MD Via [facility] SDC INCISIONAL HERNIA, LEFT INGUINAL HERNIA /DYSHAGIA [id number] 08/02/2018 12:03:00 08/02/2018 12:43:00 DIS Outpatient PIO GUAJARDO MD [facility] PREOP LEFT INGUINAL HERNIA/ EGD [id number] 06/27/2018 09:01:00 06/27/2018 13:15:00 DIS Outpatient PIO GUAJARDO MD [facility] ENDO SCREENING/EPIGASTRIC PAIN [id number] 06/20/2018 05:52:00 06/20/2018 15:07:00 DIS Outpatient PIO GUAJARDO MD [facility] PREOP COLONOSCOPY/EGD [id number] 11/23/2017 07:54:00 11/23/2017 23:59:59 CLS Outpatient MARIA VICTORIA ALBARRAN MD [facility] RAD RT BREAST LUMP [id number] 10/09/2017 10:51:00 10/09/2017 23:59:59 CLS Outpatient MARIA VICTORIA ALBARRAN MD [facility] RAD GASTROESOPHAGEAL REFLUX DISEASE WO ESOPHAGITIS [id number] 09/25/2017 15:19:00 09/25/2017 23:59:59 CLS Outpatient NICHOLAS RANDALL APRN [facility] RAD R05 [id number] 06/28/2017 12:41:00 06/28/2017 23:59:59 CLS Outpatient ARTURO FRAZIER MD [facility] RAD LT RENAL STONE [id number] 06/09/2017 10:06:00 06/09/2017 23:59:59 CLS Outpatient MARIA VICTORIA ALBARRAN MD [facility] RAD R10.32 LEFT LOWER QUADRANT PAIN [id number] 05/19/2017 08:11:00 05/19/2017 23:59:59 CLS Outpatient MARIA VICTORIA ALBARRAN MD [facility] RAD BREAST LUMP [id number] 04/21/2017 11:48:00 04/21/2017 23:59:59 CLS Outpatient MARIA VICTORIA ALBARRAN MD [facility] RAD M79.672 [id number] 04/21/2017 10:31:00 04/21/2017 23:59:59 CLS Outpatient MARIA VICTORIA ALBARRAN MD [facility] RAD M25.572 [id number] 09/24/2014 12:27:00 09/24/2014 23:59:59 CLS Outpatient NELLIE BOYER MD [facility] RAD DVT [id number] 09/24/2014 12:15:00 09/24/2014 23:59:59 CLS Preadmit NELLIE BOYER MD [facility] RAD [id number] 09/16/2014 14:10:00 09/16/2014 23:59:59 CLS Outpatient NELLIE BOYER MD [facility] RAD LEFT UPPER LEG PAIN, HX OF DVT [id number] 07/03/2014 13:31:00 07/03/2014 23:59:59 CLS Outpatient NELLIE BOYER MD [facility] RAD HYPOTHYROID, ENLARGED FIRM THYROID [id number] 09/05/2013 22:35:00 09/08/2013 14:15:00 DIS Inpatient NELLIE BOYER MD [facility] 4TH ANEMIA,HYPOKALEMIA, INFLUENTZA-LIKE ILLNESS [id number] 06/25/2013 13:34:00 06/25/2013 23:59:59 CLS Outpatient NELLIE BOYER MD [facility] RAD STRONG FAM HX OF BREAST CA, INVERTED NIPPLE, LUMP [id number] 03/29/2013 14:30:00 05/21/2013 08:42:00 DIS Outpatient NELLIE BOYER MD [facility] REHAB NECK,UPPER BACK,LUMBAR PAIN,CERVICAL STENOSIS [id number] 04/26/2013 14:37:00 04/26/2013 17:16:00 DIS Emergency VINOD CAICEDO MD [facility] ER MULTIPLE COMPLAINTS [id number] 04/04/2013 13:20:00 04/04/2013 23:59:59 CLS Outpatient [id number] 02/26/2013 08:06:00 02/26/2013 23:59:59 CLS Outpatient NELLIE BOYER MD [facility] RAD C SPINE UPPER BACK NECK ALEJANDRO, LOW BACK PAIN, [id number] 12/17/2012 13:08:00 12/17/2012 23:59:59 CLS Outpatient NELLIE BOYER MD [facility] RAD HYPOTHYROIDISM [id number] 12/03/2018 20:32:00 ACT Emergency ASHLEY ABERNATHY, SLOANE Zelaya [facility] ER LOWER BACK PAIN [id number] 06/20/2018 14:48:00 Document Registration [id number] 06/20/2018 14:48:00 Document Registration [id number] 09/16/2014 14:10:00 Document Registration [id number] 09/16/2014 14:10:00 Document Registration [id number] 11/29/2012 08:09:00 Document Registration [id number] 10/26/2012 10:09:00 Document Registration [id number] 10/24/2012 12:24:00 Document Registration [id number] 05/09/2012 00:00:00 Document Registration [id number] 02/16/2012 10:27:00 Document Registration [id number] 01/23/2012 08:34:00 Document Registration [id number] 01/19/2012 10:33:00 Document Registration [id number] 01/10/2012 08:43:00 Document Registration [id number] 12/29/2011 13:24:00 Document Registration [id number] 12/22/2011 10:11:00 Document Registration [id number] 10/26/2011 13:24:00 Document Registration [id number] 10/13/2011 05:39:00 Document Registration [id number] 10/06/2011 14:18:00 Document Registration [id number] 09/27/2011 11:54:00 Document Registration [id number] 09/02/2011 10:28:00 Document Registration [id number] 06/15/2011 09:14:00 Document Registration [id number] 02/16/2011 09:23:00 Document Registration [id number] 12/16/2010 10:43:00 Document Registration [id number] 08/19/2010 10:08:00 Document Registration [id number] 06/02/2010 09:13:00 Document Registration [id number] 05/20/2010 11:44:00 Document Registration [id number] 03/23/2010 14:00:00 Document Registration [id number] 03/04/2010 14:17:00 Document Registration [id number] 03/01/2010 10:08:00 Document Registration [id number] 02/12/2010 11:33:00 Document Registration [id number] 02/03/2010 05:43:00 Document Registration [id number] 01/27/2010 10:00:00 Document Registration [id number] 01/20/2010 10:14:00 Document Registration [id number] 01/03/2010 13:14:00 Document Registration [id number] 11/05/2009 09:22:00 Document Registration [id number] 09/24/2014 18:03:50 ACT Document Registration
[2018-12-03] MEDS ORDERED: ONDANSETRON 4 MG/2 ML (SDV) Z0FRAN IVP ONE (21:00)
[2018-12-03] MEDS ORDERED: NS IV 1000 ML 1,000 ML IV SCH (21:00)
[2018-12-03] MEDS ORDERED: KETOROLAC 30 MG/ML VIAL IVP ONE (21:00)
[2018-12-03] MEDS ORDERED: fentaNYL INJECTION 100 MCG/2 ML AMP IVP ONE ×2 (21:00→22:15)
[2018-12-03 21:17] LABS: BILIRUBIN,URINE NEGATIVE (NEGATIVE); CLARITY,URINE SLIGHTLY CLOUDY; COLOR,URINE YELLOW; GLUCOSE, URINE (UA) NEGATIVE (NEGATIVE); KETONES,URINE NEGATIVE (NEGATIVE); LEUKOCYTE ESTERASE ,URINE 1+ (NEGATIVE); NITRITE,URINE NEGATIVE (NEGATIVE); PH,URINE 7 (5-9); PROTEIN,URINE 2+ (NEGATIVE); UROBILINOGEN,URINE NORMAL (NORMAL)
[2018-12-03 21:18] LABS: BASOPHILS % (AUTO) 0 % (0-10); EOSINOPHILS # (AUTO) 0.1 10^3/uL (0.0-0.3); EOSINOPHILS % (AUTO) 2 % (0-10); HEMATOCRIT 40 % (35-52); HEMOGLOBIN 13.2 G/DL (11.5-16.0); LYMPHOCYTES # (AUTO) 2.3 X 10^3 (1.0-4.0); LYMPHOCYTES % (AUTO) 46 % (12-44); MEAN CORPUSCULAR HEMOGLOBIN 30 PG (25-34); MEAN CORPUSCULAR HGB CONC 33 G/DL (32-36); MEAN CORPUSCULAR VOLUME 91 FL (80-99); MEAN PLATELET VOLUME 9.6 FL (7.4-10.4); MONOCYTES # (AUTO) 0.4 X 10^3 (0.0-1.0); MONOCYTES % (AUTO) 7 % (0-12); NEUTROPHILS # (AUTO) 2.3 X 10^3 (1.8-7.8); NEUTROPHILS % (AUTO) 45 % (42-75); PLATELET COUNT 322 10^3/uL (130-400); RED CELL DISTRIBUTION WIDTH 13.5 % (10.0-14.5); WHITE BLOOD COUNT 5.1 10^3/uL (4.3-11.0)
--- NOTE | 2018-12-03 21:27 | Diagnostic Imaging Report ---
EXAM: AP view of the abdomen INDICATION: Right flank pain with hematuria. FINDINGS: Renal shadows are evident. There is no abnormal calcification projecting over the renal shadows or evidence of an unexpected stone along the course of the ureters. Calcification over the right sacrum in correlation with prior CT appears to be a vascular calcification. High density material within the urethra is unchanged. This may relate to a ureteral diverticulum. The bowel gas pattern is nonobstructed. There are surgical clips in right upper quadrant from cholecystectomy. IMPRESSION: 1. Stones demonstrated within the left kidney on subsequent CT are not readily apparent. The distal right UVJ stone is also difficult to evaluate given the presence of some gas within the rectum at that level. This appears to project just lateral to the rectum. 2. Unchanged density at the level of the urethra may reflect stones within the urethral diverticulum. 3. The bowel gas pattern appears nonobstructed. Dictated by: Dictated on workstation # [id number]
[2018-12-03 21:31] LABS: AMORPHOUS SEDIMENT,UR MOD AMOR PHOSPHATE /LPF; BACTERIA,URINE MODERATE /HPF
[2018-12-03 21:37] LABS: ALBUMIN 4.5 GM/DL (3.2-4.5); BILIRUBIN,TOTAL 0.3 MG/DL (0.1-1.0); CREATININE SERUM 1.2 MG/DL (0.60-1.30); POTASSIUM 3.7 MMOL/L (3.6-5.0); TOTAL PROTEIN 7.3 GM/DL (6.4-8.2)
--- NOTE | 2018-12-03 21:39 | Diagnostic Imaging Report ---
PROCEDURE: CT urinary tract, rule out kidney stone. TECHNIQUE: Multiple contiguous axial images were obtained through the abdomen and pelvis without the use of intravenous contrast. Auto Exposure Controls were utilized during the CT exam to meet ALARA standards for radiation dose reduction. INDICATION: Right flank pain with hematuria. COMPARISON: Plain film performed earlier the same day and to prior CT study from 06/09/2017. FINDINGS: The lung bases appear clear without infiltrate or evidence of an effusion. There are bilateral breast implants. The liver demonstrates no evidence of a focal intrahepatic abnormality. The patient is status post cholecystectomy. There is no abnormal biliary dilatation. The pancreas demonstrates no focal abnormality. The spleen is normal in size. There is no adrenal mass. There are tiny non-obstructive stones within the left kidney measuring approximately 2-3 mm. On the right, there is moderate right-sided hydronephrosis. There is also right-sided hydroureter. This appears secondary to a stone at the right ureteral vesicular junction which measures approximately 6 mm. Density within the urethra is unchanged from prior CT examination and may reflect stones within the urethral diverticulum. The bowel appears nonobstructed. There is moderate stool throughout the colon. There is no abnormal bowel thickening. There is no focal inflammation within the omentum or mesentery. There are no findings of free air or free fluid or abscess. There are no pathologically enlarged lymph nodes. There are mild atherosclerotic calcifications within a normal caliber aorta. No acute or suspicious osseous abnormality is evident within the visualized portion of the spine or pelvis. IMPRESSION: 1. Moderate right-sided hydronephrosis with associated hydroureter secondary to a 6 mm stone at the right ureterovesicular junction. 2. Nonobstructive small calculi within the left kidney. 3. Previous cholecystectomy and hysterectomy. 4. No evidence of bowel obstruction, free air or free fluid. 5. Unchanged density at the level of the urethra may reflect stones within a urethral diverticulum. Dictated by: Dictated on workstation # [id number]
[2018-12-03] MEDS ORDERED: SULF1TAB35 PO (22:18)
--- NOTE | 2018-12-03 22:18 | ED Back Pain ---
General Chief Complaint: Back Problems Stated Complaint: LOWER BACK PAIN Nursing Triage Note: PT AMB TO ROOM #4 HOLDING BACK. A&OX4. C/O RT FLANK PAIN RADIATING LOWER MEDIAL BACK. PT REPORTS @ APPROX 1830 ON THIS DAY, STABBING PAIN TO RT FLANK BEGAN. PT REPORTS BURNING UPON URINATION. PT STATES, "ON MONDAY I PASSED SOME BLACKISH MARK ANTHONY PARTICLES IN MY URINE." REPORTS TO HAVE TAKEN A PRESCRIBED 7.5MG HYDROCODONE CONTENT MANAGER WITH NO RELIEF. DENIES RECENT FEVER OR CHILLS. PT NOTED TO BE TEARFUL DURING TRIAGE. Nursing Sepsis Screen: No Definite Risk Source of Information: Patient Exam Limitations: No Limitations History of Present Illness Date Seen by Provider: Dec 03, 2018 Time Seen by Provider: 20:50 Allergies and Home Medications Allergies Coded Allergies: Penicillins (Verified Allergy, Unknown, RASH, 06/20/18) erythromycin base (Verified Allergy, Unknown, 11/15/05) latex (Verified Allergy, Unknown, 06/27/18) Home Medications Alprazolam 1 Mg Tablet, 1 MG PO BID PRN for ANXIETY, (Reported) Aspirin 81 Mg Tab.chew, 81 MG PO DAILY, (Reported) Baclofen 20 Mg Tablet, 20 MG PO BID, (Reported) Fenofibrate,Micronized 200 Mg Capsule, 200 MG PO DAILY, (Reported) Fluoxetine HCl 40 Mg Capsule, 40 MG PO DAILY, (Reported) Hydrocodone Bit/Acetaminophen 1 Tab Tab, 1 TAB PO Q6H PRN for PAIN-MODERATE, ( Reported) Hydrocodone Bit/Acetaminophen 1 Ea Tablet, 1 EACH PO Q4H PRN for PAIN-MODERATE Prescribed by: PIO GUAJARDO on 08/03/18 0952 Pantoprazole Sodium 40 Mg Tablet.dr, 40 MG PO DAILY Prescribed by: PIO GUAJARDO on 06/27/18 1156 Rosuvastatin Calcium 10 Mg Tablet, 10 MG PO DAILY, (Reported) Sulfamethoxazole/Trimethoprim 1 Each Tablet, 1 EACH PO BID Prescribed by: BRENDON POOL on 12/03/18 2218 Thyroid,Pork 60 Mg Tablet, 60 MG PO DAILY, (Reported) Topiramate 100 Mg Tablet, 100 MG PO BID, (Reported) Zolpidem Tartrate 10 Mg Tablet, 10 MG PO HS PRN for SLEEP, (Reported) Past Yulxpaj-Hhxucw-Vmiaax Hx Patient Social History Alcohol Use: Denies Use Recreational Drug Use: No Smoking Status: Never a Smoker 2nd Hand Smoke Exposure: No Recent Foreign Travel: No Contact w/Someone Who Travel: No Recent Infectious Disease Expo: No Recent Hopitalizations: No Immunizations Up To Date Tetanus Booster (TDap): Less than 5yrs PED Vaccines UTD: No Date of Pneumonia Vaccine: Sep 06, 2013 Date of Influenza Vaccine: May 14, 2018 Seasonal Allergies Seasonal Allergies: Yes Past Medical History Surgeries: Yes (c/s x2, bilat TKR, bilat mastectomy, Left leg fem pop, R CTR) Appendectomy, Bladder Surgery, Gallbladder, Hysterectomy, Tonsillectomy Respiratory: Yes Asthma Cardiac: Yes Heart Murmur Neurological: Yes (NERVE DAMAGE IN L FOOT) Headaches /Migraines Reproductive Disorders: No Female Reproductive Disorders: 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 Sexually Transmitted Disease: No HIV/AIDS: No Gastrointestinal: Yes (bile salt diarrhea) Abdominal Hernia Musculoskeletal: Yes (LEFT AND RIGHT PARTIAL KNEE REPLACEMENTS) Degenerate Disk Disease, Arthritis, Fibromyalgia, Chronic Back Pain Endocrine: Yes (miguel thyroiditis) Cancer: No Psychosocial: Yes Anxiety, Depression Integumentary: Yes Psoriasis Blood Disorders: Yes (anemia) Adverse Reaction/Blood Tranf: No Family Medical History Alcoholism 09 SISTER Cancer 03 MOTHER Family history: Breast disease 03 MOTHER Family history: Diabetes mellitus 03 MOTHER Family history: Hypertension 03 MOTHER Physical Exam Vital Signs Vital Signs - First Documented 12/03/18 20:48 Temp 98.3 Pulse 80 Resp 16 B/P (MAP) 147/79 (101) Pulse Ox 99 O2 Delivery Room Air Capillary Refill : Less Than 3 Seconds Height, Weight, BMI Height: 5'2.00" Weight: 170lbs. 7.0oz. 77.508106hs; 31.0 BMI Method:Stated Progress/Results/Core Measures Results/Orders Lab Results Laboratory Tests Test 12/03/18 21:05 Range/Units White Blood Count 5.1 4.3-11.0 10^3/uL Red Blood Count 4.38 4.35-5.85 10^6/uL Hemoglobin 13.2 11.5-16.0 G/DL Hematocrit 40 35-52 % Mean Corpuscular Volume 91 80-99 FL Mean Corpuscular Hemoglobin 30 25-34 PG Mean Corpuscular Hemoglobin Concent 33 32-36 G/DL Red Cell Distribution Width 13.5 10.0-14.5 % Platelet Count 322 130-400 10^3/uL Mean Platelet Volume 9.6 7.4-10.4 FL Neutrophils (%) (Auto) 45 42-75 % Lymphocytes (%) (Auto) 46 H 12-44 % Monocytes (%) (Auto) 7 0-12 % Eosinophils (%) (Auto) 2 0-10 % Basophils (%) (Auto) 0 0-10 % Neutrophils # (Auto) 2.3 1.8-7.8 X 10^3 Lymphocytes # (Auto) 2.3 1.0-4.0 X 10^3 Monocytes # (Auto) 0.4 0.0-1.0 X 10^3 Eosinophils # (Auto) 0.1 0.0-0.3 10^3/uL Basophils # (Auto) 0.0 0.0-0.1 10^3/uL Urine Color YELLOW Urine Clarity SLIGHTLY CLOUDY Urine pH 7 5-9 Urine Specific [place] 1.015 L 1.016-1.022 Urine Protein 2+ H NEGATIVE Urine Glucose (UA) NEGATIVE NEGATIVE Urine Ketones NEGATIVE NEGATIVE Urine Nitrite NEGATIVE NEGATIVE Urine Bilirubin NEGATIVE NEGATIVE Urine Urobilinogen NORMAL NORMAL MG/DL Urine Leukocyte Esterase 1+ H NEGATIVE Urine RBC (Auto) 3+ H NEGATIVE Urine RBC 5-10 H /HPF Urine WBC 2-5 /HPF Urine Squamous Epithelial Cells 10-25 H /HPF Urine Crystals PRESENT H /LPF Urine Amorphous Sediment MOD RADHA PHOSPHATE H /LPF Urine Bacteria MODERATE H /HPF Urine Casts NONE /LPF Urine Mucus NEGATIVE /LPF Urine Culture Indicated YES Sodium Level 145 135-145 MMOL/L Potassium Level 3.7 3.6-5.0 MMOL/L Chloride Level 113 H 98-107 MMOL/L Carbon Dioxide Level 22 21-32 MMOL/L Anion Gap 10 5-14 MMOL/L Blood Urea Nitrogen 16 7-18 MG/DL Creatinine 1.20 0.60-1.30 MG/DL Estimat Glomerular Filtration Rate 47 BUN/Creatinine Ratio 13 Glucose Level 104 70-105 MG/DL Calcium Level 10.0 8.5-10.1 MG/DL Corrected Calcium 9.6 8.5-10.1 MG/DL Total Bilirubin 0.3 0.1-1.0 MG/DL Aspartate Amino Transf (AST/SGOT) 22 5-34 U/L Alanine Aminotransferase (ALT/SGPT) 21 0-55 U/L Alkaline Phosphatase 62 40-136 U/L Total Protein 7.3 6.4-8.2 GM/DL Albumin 4.5 3.2-4.5 GM/DL Amylase Level 63 25-125 U/L Lipase 23 8-78 U/L My Orders Orders - BRENDON POOL Comprehensive Metabolic Panel (12/03/18 20:55) Lipase (12/03/18 20:55) Amylase (12/03/18 20:55) Ua Culture If Indicated (12/03/18 20:55) Ed Iv/Invasive Line Start (12/03/18 20:55) Cbc With Automated Diff (12/03/18 20:55) Ct Abd/Pelvis Wo(Kidney Stone) (12/03/18 20:55) Abdomen/Kub 1view (12/03/18 20:55) Ketorolac Injection (Toradol Injection) (12/03/18 21:00) Fentanyl Injection (Sublimaze Injection (12/03/18 21:00) Ondansetron Injection (Zofran Injectio (12/03/18 21:00) Ns Iv 1000 Ml (Sodium Chloride 0.9%) (12/03/18 21:00) Urine Culture (12/03/18 21:05) Fentanyl Injection (Sublimaze Injection (12/03/18 22:15) Medications Given in ED Current Medications Medications Dose Ordered Sig/Consuelo Route Start Time Stop Time Status Last Admin Dose Admin Fentanyl Citrate 50 mcg ONCE ONCE IVP 12/03/18 21:00 12/03/18 21:01 DC 12/03/18 21:08 50 MCG Ketorolac Tromethamine 30 mg ONCE ONCE IVP 12/03/18 21:00 12/03/18 21:01 DC 12/03/18 21:08 30 MG Ondansetron HCl 4 mg ONCE ONCE IVP 12/03/18 21:00 12/03/18 21:01 DC 12/03/18 21:08 4 MG Vital Signs/I&O 12/03/18 20:48 Temp 98.3 Pulse 80 Resp 16 B/P (MAP) 147/79 (101) Pulse Ox 99 O2 Delivery Room Air Blood Pressure Mean: 101 Departure Impression Primary Impression: Urolithiasis Qualified Codes: N20.0 - Calculus of kidney Disposition: 01 HOME, SELF-CARE Condition: Stable/Unchanged Departure-Patient Inst. Decision time for Depature: 22:16 Referrals: MARIA VICTORIA ALBARRAN MD (PCP/Family) Primary Care Physician ARTURO FRAZIER MD Patient Instructions: Kidney Stones (DC) Add. Discharge Instructions: Take medications as directed. Use your home pain medication as needed. Call Dr. Frazier's office tomorrow morning to schedule an appointment time for further evaluation. Strain all urine and if you should pass the stone take it with you to Dr. Frazier's office. Return back to the emergency room for worsening symptoms or concerns as needed. All discharge instructions reviewed with patient and/or family. Voiced understanding. Scripts Sulfamethoxazole/Trimethoprim (Bactrim Ds Tablet) 1 Each Tablet 1 EACH PO BID for 7 Days, #14 TAB Prov: BRENDON POOL 12/03/18 BRENDON POOL Dec 03, 2018 22:18
[2018-12-03] MEDS ORDERED: TRIM/SULFAMETH 160/800 (SEPTRA DS) TAB PO ONE (22:30)
[2018-12-03 22:33] VITALS: BP 128/72
[2018-12-04] MEDS ORDERED: BACL10TA PO (14:59)
[2018-12-04] MEDS ORDERED: PANT40TA3 PO (14:59)
== END 2018-12-03 22:33 | disposition home or self-care (01) ==
LOC: EDUNIT# 20:31 → ER 20:32
DX: N13.2 Hydronephrosis with renal and ureteral calculous obstruction (principal); J45.909 Unspecified asthma, uncomplicated; G43.909 Migraine, unspecified, not intractable, without status migrainosus; F41.9 Anxiety disorder, unspecified; F32.9 Major depressive disorder, single episode, unspecified; E06.3 Autoimmune thyroiditis; D64.9 Anemia, unspecified; Z87.19 Personal history of other diseases of the digestive system; Z88.0 Allergy status to penicillin; Z91.041 Radiographic dye allergy status; Z91.040 Latex allergy status; Z82.49 Family history of ischemic heart disease and other diseases of the circulatory system; Z79.82 Long term (current) use of aspirin; Z90.13 Acquired absence of bilateral breasts and nipples; Z96.653 Presence of artificial knee joint, bilateral; Z90.49 Acquired absence of other specified parts of digestive tract; Z90.710 Acquired absence of both cervix and uterus; Z90.89 Acquired absence of other organs
CPT/HCPCS: 36415; 74018; 74176; 80053; 81000; 82150; 83690; 85025; 87088

== ENCOUNTER 2018-12-04 14:42 | Outpatient (CLI) | payer BC ==
[~2018-12-04] VITALS: Ht 157.5 cm; Wt 77.1 kg
[~2018-12-04 14:42] MED LIST changes: +SULF1TAB35 PO
[2018-12-04] MEDS ORDERED: BACL10TA PO (14:59)
[2018-12-04] MEDS ORDERED: PANT40TA3 PO (14:59)
== END 2018-12-04 15:10 | disposition home or self-care (01) ==
LOC: PREOP 14:42
PROVIDERS: ATTEND Urology
DX: Z01.818 Encounter for other preprocedural examination (principal)

== ENCOUNTER → 2019-08-29 | Outpatient (CLI) | payer BC ==
[~2019-08-29] MED LIST changes: +BACL10TA PO; +PANT40TA3 PO; -ROSU10TA27 PO; +ROSU10TA28 PO
--- NOTE | 2019-08-29 11:37 | Diagnostic Imaging Report ---
INDICATION: Right flank pain and hematuria. Time of exam: 11:11 AM Correlation is made with prior study from 12/05/2018. Calcific density overlies lower pole left kidney. No definite right-sided renal calculi are seen. No definite calculi along the expected course of ureters are identified. There are some pelvic calcifications particularly in the right hemipelvis, similar to prior exam and may represent phleboliths. Bowel gas pattern is unremarkable. IMPRESSION: Probable left renal calculus. No definite ureteral calculi are detected. Report was faxed to office of Dr. Bermudez by nasrin at 11:35 am. Dictated by: Dictated on workstation # [id number]
--- NOTE | 2019-08-29 11:57 | Diagnostic Imaging Report ---
PROCEDURE: CT urinary tract, rule out kidney stone. TECHNIQUE: Multiple contiguous axial images were obtained through the abdomen and pelvis without the use of intravenous contrast. Auto Exposure Controls were utilized during the CT exam to meet ALARA standards for radiation dose reduction. INDICATION: Right flank pain and hematuria. COMPARISON: Correlation is made with prior CT from 12/03/2018. FINDINGS: The lung bases are clear. The liver is unremarkable. The gallbladder is surgically absent. No biliary ductal dilatation is seen. The pancreas and spleen are unremarkable. No adrenal mass is detected. Nonobstructing calculi in the left kidney are noted, largest in the lower pole measuring 4 mm. No definite right-sided renal calculi are detected. Both ureters are normal in caliber. No ureteral or bladder calculi are seen. There is no hydronephrosis. Aorta is calcified but nonaneurysmal. Bowel loops are normal in caliber. There is no obstruction. No free fluid or fluid collection is seen. Calcific density in the midline of the low pelvis is again noted. This again could represent urethral calcifications or perhaps stones within a urethral diverticulum. IMPRESSION: 1. Nonobstructing left renal calculus. No ureteral calculi or hydronephrosis are detected. 2. Low midline pelvic calcifications, similar to prior CT, again possibly representing ureteral or urethral diverticular stones. Dictated by: Dictated on workstation # [id number]
== END ==
LOC: RAD 10:41
PROVIDERS: ATTEND Urology
DX: N20.0 Calculus of kidney (principal)
CPT/HCPCS: 74018; 74176

== ENCOUNTER → 2019-09-25 | Outpatient (CLI) | payer BC ==
--- NOTE | 2019-09-25 12:13 | Diagnostic Imaging Report ---
INDICATION: Screening The current study was also evaluated with a Computer Aided Detection (CAD) system. 3-D Tomographic imaging was also performed. Comparison made with prior examination from 11/23/2017, 05/19/2017 and 06/25/2013 FINDINGS: There has been bilateral breast augmentation with implants. There are some coarse calcifications as well as a biopsy clip in the upper outer right breast. There is otherwise scattered fibrotic densities. No new dominant mass lesion or suspicious calcification identified. Both implants appear intact. IMPRESSION: Category 2 benign ACR BI-RADS Category 2: Benign findings. Result letter will be mailed to the patient. Note: At least 10% of breast cancer is not imaged by mammography. Dictated by: Dictated on workstation # [id number]
== END ==
LOC: RAD 10:59
PROVIDERS: ATTEND Nurse Practitioner Family
DX: Z12.31 Encounter for screening mammogram for malignant neoplasm of breast (principal); Z80.3 Family history of malignant neoplasm of breast; Z98.82 Breast implant status; Z78.0 Asymptomatic menopausal state
CPT/HCPCS: 77067

== ENCOUNTER → 2019-10-23 | Outpatient (CLI) | payer BC ==
--- NOTE | 2019-10-23 16:16 | Diagnostic Imaging Report ---
EXAMINATION: MRI of the lumbar spine without contrast, 10/23/2019. TECHNIQUE: Multiplanar, multisequence MRI of the lumbar spine was performed without contrast. INDICATION: Low back pain, chronic in nature. COMPARISON: 02/26/2013. FINDINGS: Alignment of the spine is preserved. No fractures or subluxations appreciated. The tip of the conus is unremarkable in appearance and location. T12-L1: There is a central disc protrusion. Bilateral facet and ligamentum flavum hypertrophy is noted. Findings cause mild central narrowing. Neural foramina demonstrate no significant narrowing. L1-L2: There is mild bilateral facet hypertrophy. No significant central stenosis. The neural foramina demonstrate [id number] bilateral narrowing. L2-L3: There is bilateral facet and ligamentum flavum hypertrophy. There is minimal broad-based bulging disc material with no central stenosis. There is bilateral moderate neural foraminal narrowing. L3-L4: Bilateral facet and ligamentum flavum hypertrophy seen. There is disc desiccation. No central stenosis. There is bilateral moderate neural foraminal narrowing. L4-L5: There is bilateral facet and ligamentum flavum hypertrophy. There is disc desiccation. There is a right paracentral broad-based bulging disc which extends into the right neural foramen and lateral recess. Findings abut the exiting and transiting nerve roots but without obvious encroachment. Correlate with symptoms. Overall, there is mild central narrowing. Bilateral moderate neural foraminal stenosis is seen. L5-S1: There is intervertebral disc space narrowing, disc desiccation, and a left paracentral broad-based bulging disc with an annular tear. Bilateral facet and ligamentum flavum hypertrophy. Moderate central stenosis with narrowing of the left lateral recess and possible encroachment upon the transiting nerve root; correlate with symptoms. Severe left and moderate right neural foraminal stenosis is seen. Visualized intra-abdominal structures are normal in appearance. IMPRESSION: 1. Multilevel diffuse degenerative disease as described; see above description. Dictated by: Dictated on workstation # [id number]
== END ==
LOC: RAD 15:16
PROVIDERS: ATTEND Nurse Practitioner Family
DX: M51.17 Intervertebral disc disorders with radiculopathy, lumbosacral region (principal); M48.07 Spinal stenosis, lumbosacral region; M47.26 Other spondylosis with radiculopathy, lumbar region; M51.15 Intervertebral disc disorders with radiculopathy, thoracolumbar region; M48.05 Spinal stenosis, thoracolumbar region
CPT/HCPCS: 72148

== ENCOUNTER 2020-07-14 05:32 | Outpatient (RCR) | payer BC ==
[~2020-07-14] VITALS: Ht 158.8 cm; Wt 93.0 kg
[~2020-07-14 05:32] MED LIST changes: +FURO40TA4 PO; +GABA300C PO; +METO50TA7 PO; -PANT40TA3 PO; +PANT40TA52 PO; +THYR90TA PO; +ZOLP10TA PO
== END 2020-07-14 10:54 | disposition home or self-care (01) ==
LOC: PREOP 05:32
PROVIDERS: ATTEND Surgery
DX: Z01.812 Encounter for preprocedural laboratory examination (principal); Z20.828 Contact with and (suspected) exposure to other viral communicable diseases; Z87.19 Personal history of other diseases of the digestive system
CPT/HCPCS: 87635

== ENCOUNTER 2020-07-15 09:35 | Day surgery (SDC) | payer BC ==
[~2020-07-15] VITALS: Ht 159 cm; Wt 93.0 kg
[2020-07-15] MEDS ORDERED: NS IV 500 ML 500 ML IV PRN (09:42)
[2020-07-15] MEDS ORDERED: NS IV 500 ML 500 ML ONE (09:43)
[2020-07-15] MEDS ORDERED: LIDOCAINE JELLY 2% 6 ML SYRINGE MM PRN (09:45)
[2020-07-15] MEDS ORDERED: HURRICAINE EXT TUBE (BENZOCAINE) XX PRN (09:45)
[2020-07-15] MEDS ORDERED: MIDAZOLAM 5 MG/5 ML (VERSED) VIAL IV ONE (09:45)
[2020-07-15] MEDS ORDERED: fentaNYL INJECTION 100 MCG/2 ML AMP IVP ONE (09:45)
[2020-07-15 09:55] VITALS: BP 101/53
--- NOTE | 2020-07-15 10:05 | Conscious Sedation/ASA ---
Conscious Sedation Pre-Proced Time 10:00 ASA Score 2 For ASA 3 and 4: Consider anesthesia and medical clearance. Also, for patients with a history of failed moderate sedation consider anesthesia. Airway Lungs Heart ASA score ASA 1: a normal healthy patient ASA 2: a patient with a mild systemic disease (mid diabetes, controlled hypertension, obesity ASA 3: a patient with a severe systemic disease that limits activity (angina, COPD, prior Myocardial infarction) ASA 4: a patient with an incapacitating disease that is a constant threat to life (CHF, renal failure) ASA 5: a moribund patient not expected to survive 24 hrs. (ruptured aneurysm) ASA 6: a declared brain- patient whose organs are being harvested. For emergent operations, add the letter E after the classification Mallampati Classification Grade 2 Sedation Plan Analgesia, Amnesia, Plan communicated to team members, Discussed options with patient/fam, Discussed risks with patient/fam The patient is an appropriate candidate to undergo the planned procedure, sedation, and anesthesia. The patient immediately re-assessed prior to indication. PIO GUAJARDO MD Jul 15, 2020 10:05
--- NOTE | 2020-07-15 10:06 | Progress Note-Pre Operative ---
Pre-Operative Progress Note H&P Reviewed The H&P was reviewed, patient examined and no changes noted. Date Seen by Provider: Jul 15, 2020 Time Seen by Provider: 10:00 Date H&P Reviewed: Jul 15, 2020 Time H&P Reviewed: 10:00 Pre-Operative Diagnosis: GERD, hx PIO Riley MD Jul 15, 2020 10:06
--- NOTE | 2020-07-15 10:07 | Discharge Inst-Surgical ---
D/C Lap Instructions-BENNETT Follow Up Activity as tolerated High Fiber Diet 25g or more per day Avoid Alcohol, Caffeine, Spicy [place] and Acid foods. Drink 64 fluid oz or more of fluids per day. Symptoms to Report: Fever over 101 degree F, Nausea/Vomiting If any problems/questions: Contact your physician or go to Emergency Room PIO GUAJARDO MD Jul 15, 2020 10:07
[2020-07-15] MEDS ORDERED: ACETAMINOPHEN 325 MG TABLET PO PRN (10:15)
[2020-07-15] MEDS ORDERED: ONDANSETRON 4 MG/2 ML (SDV) Z0FRAN IVP PRN (10:15)
[2020-07-15] MEDS ORDERED: HYDROcodone/APAP 5 MG/325 MG (LORTAB) TAB PO PRN (10:15)
[2020-07-15] MEDS ORDERED: morphine INJ 10 MG/ML 1ML (SYR OR VIAL) IVP PRN ×2 (10:15)
[2020-07-15] MEDS ORDERED: MIDAZOLAM 2 MG/2 ML (VERSED) VIAL ONE (10:36)
[2020-07-15] MEDS ORDERED: PROPOFOL INJECTION 50 ML IV ONE (10:36)
[2020-07-15] MEDS ORDERED: LIDOCAINE JELLY 2% 6 ML SYRINGE ONE (11:19)
[2020-07-15] MEDS ORDERED: HURRICAINE EXT TUBE (BENZOCAINE) ONE (11:19)
[2020-07-15] MEDS ORDERED: KETAMINE/NaCl 50 MG/5 ML SYRINGE (ED ONLY) ONE (11:35)
[2020-07-15 11:50] VITALS: BP 113/63
--- NOTE | 2020-07-15 11:55 | Progress Note-Post Operative ---
Post-Operative Progess Note Surgeon (s)/Geographic Information System Analyst (s) Surgeon PIO GUAJARDO MD Geographic Information System Analyst: none Pre-Operative Diagnosis GERD, hx barretts, dysphagia Post-Operative Diagnosis reflux esophagitis(stage 2), achalasia, small HH(1.5cm), mild-mod gastritis. Procedure & Operative Findings Date of Procedure 07/15/20 Procedure Performed/Findings EGD with bx and dilatation. Anesthesia Type mac Estimated Blood Loss Estimated blood loss (mL): minimal Specimens/Packing Specimens Removed ge jxn, antrum PIO GUAJARDO MD Jul 15, 2020 11:55
[2020-07-15 12:15] VITALS: BP 100/41
[2020-07-15 12:35] VITALS: BP 100/41
--- NOTE | 2020-07-15 20:07 | OPERATIVE REPORT ---
DATE OF SERVICE: 07/15/2020 ATTENDING PRIMARY CARE PHYSICIAN: Alfie Funes MD PREOPERATIVE DIAGNOSES: History of Martin's esophagus, gastroesophageal reflux disease and achalasia. POSTOPERATIVE DIAGNOSES: Reflux esophagitis stage II, hypertonic lower esophageal sphincter. Small hiatal hernia 1.5 cm in size, mild to moderate gastritis. No distal obstructions. PROCEDURE: EGD with biopsy and balloon dilatation. SURGEON: Pio Guajardo MD. ANESTHESIA: Monitored anesthesia care. ESTIMATED BLOOD LOSS: Minimal. FINDINGS: Reflux esophagitis stage II, hypertonic lower esophageal sphincter. Small hiatal hernia 1.5 cm in size, mild to moderate gastritis. No distal obstructions. DISPOSITION: The patient tolerated the procedure well. INDICATIONS: The patient is a 55-year-old female who has had a longstanding history of gastroesophageal reflux disease. She was placed on Protonix, which has helped her symptoms. She also later developed dysphagia on an intermittent basis and did undergo EGD and dilatation. We then had her undergo an esophageal manometry study, which did show hypertonic lower esophageal sphincter consistent with achalasia. At this time, she states that her symptoms of dysphagia are intermittent and not severe and for the most part is able to tolerate most foods intake and adequate amounts of liquids. DESCRIPTION OF PROCEDURE: The patient was brought to the endoscopy suite, laid in left lateral decubitus position with head slightly elevated. After adequate IV pain and stated medications and monitored anesthesia care, the mouthpiece was applied. The endoscope was placed in the mouth, visualizing the pharynx and hypopharyngeal region. Vocal cords, epiglottis and vallecula identified and appeared to be normal. Endoscope was then gently abated esophageal opening and esophagus insufflated. The endoscope was then advanced through the first, second and third portion of the esophagus at the level of the GE junction, a reflux esophagitis stage II identified. There was also a hypertonic lower esophageal sphincter tone consistent with achalasia. A biopsy was taken of the GE junction with forceps for visualization of good hemostasis. The endoscope was then advanced in the stomach and endoscope retroflexed, visualizing a small hiatal hernia approximately 1.5 cm in size. There was also a mild to moderate gastritis. No formal ulcerations, polyps, or any neoplasms. A biopsy was taken of the antrum to rule out H. pylori with visualization of good hemostasis. Endoscope was then advanced through the pylorus and the first and second portion of the duodenum, which appeared normal with no distal obstructions. We then proceeded with balloon dilatation of the lower esophageal sphincter. The balloon was placed in the stomach and pulled back to the area of the lower esophageal sphincter. We then first proceeded to 2, 4, then 6 atmospheres of pressure with mild to moderate resistance. We then left this in place for 60 seconds. The balloon was then desufflated and removed with visualization of good hemostasis as well as no mucosal tears. The endoscope was then slowly withdrawn while taking a second look and suctioning of residual air with no additional findings. The patient tolerated the procedure well. We will recommend continued medical management with the necessary lifestyle and diet accommodation and conservative therapy. We will recommend small and more frequent meals, avoidance of eating at night as well as head elevation while lying supine. We will also recommend chewing thoroughly and eating slowly. If she does have recurrent episodes of worsening dysphagia, we will have her followup and proceed with a dilatation with achalasia balloon and increase the diameter in a staged manner. Job ID: [id number] DocumentID: [id number] Dictated Date: 07/15/2020 12:09:29 Cut Off Saw Tender Metal Date: 07/15/2020 20:07:10 Dictated By: PIO GUAJARDO MD
--- NOTE | 2020-07-21 07:10 | Anesthesia-General Post-Op ---
MAC Significant Intra-Op Events Notes postop addendum for mac anesthesia on 07/15/20 at 1200 Patient Condition Mental Status/LOC: Same as Preop Cardiovascular: Satisfactory Nausea/Vomiting: Absent Respiratory: Satisfactory Pain: Controlled Complications: Absent Post Op Complications Complications None Follow Up Care/Instructions Patient Instructions None needed. Anesthesiology Discharge Order Discharge Order Patient is doing well, no complaints, stable vital signs, no apparent adverse anesthesia problems. No complications reported per nursing. ZAYDA CRONIN CRNA Jul 21, 2020 07:10
== END 2020-07-15 12:35 | disposition home or self-care (01) ==
LOC: ENDO 09:35
PROVIDERS: ATTEND Surgery
DX: K21.00 Gastro-esophageal reflux disease with esophagitis, without bleeding (principal); K22.0 Achalasia of cardia; K31.89 Other diseases of stomach and duodenum; K44.9 Diaphragmatic hernia without obstruction or gangrene; K29.70 Gastritis, unspecified, without bleeding; J45.909 Unspecified asthma, uncomplicated; G43.909 Migraine, unspecified, not intractable, without status migrainosus; F41.9 Anxiety disorder, unspecified; F32.9 Major depressive disorder, single episode, unspecified; M19.90 Unspecified osteoarthritis, unspecified site; K21.9 Gastro-esophageal reflux disease without esophagitis; E03.9 Hypothyroidism, unspecified; G89.29 Other chronic pain; M54.5 Low back pain; Z79.899 Other long term (current) drug therapy; Z88.0 Allergy status to penicillin; Z88.1 Allergy status to other antibiotic agents; Z91.040 Latex allergy status; Z87.19 Personal history of other diseases of the digestive system

== ENCOUNTER → 2021-02-02 | Outpatient (CLI) | payer BC ==
--- NOTE | 2021-02-02 15:38 | Diagnostic Imaging Report ---
INDICATION: Routine screening. COMPARISON is made with prior mammograms from 09/25/2019 and 05/19/2017. 2-D and 3-D bilateral screening mammography was performed with CAD. Bilateral subpectoral breast implants are noted. Implant contours remain smooth. Scattered fibroglandular densities are noted in both breasts. Coarse calcifications in the outer right breast are again noted and appear unchanged. No mass or malignant appearing microcalcifications are seen. Axillae are unremarkable. IMPRESSION: BI-RADS Category 2 No mammographic features suspicious for malignancy are identified. ACR BI-RADS Category 2: Benign findings. Result letter will be mailed to the patient. Note: At least 10% of breast cancer is not imaged by mammography. Dictated by: Dictated on workstation # [id number]
== END ==
LOC: RAD 14:11
DX: Z12.31 Encounter for screening mammogram for malignant neoplasm of breast (principal)
CPT/HCPCS: 77063; 77067

== ENCOUNTER → 2022-02-04 | Outpatient (CLI) | payer BC ==
[~2022-02-04] MED LIST changes: -FENO200C PO; +FENO200C27 PO; -SULF1TAB35 PO; +SULF1TAB38 PO
--- NOTE | 2022-02-04 16:56 | Diagnostic Imaging Report ---
INDICATION: Routine screening. CORRELATION is made with prior mammograms from 02/02/2021 and 09/25/2019. 2-D and 3-D bilateral screening mammography was performed with CAD. Bilateral subpectoral breast implants are again noted. Implant contours remain smooth without evidence of extracapsular rupture. Scattered fibroglandular densities in both breasts are noted. Previously noted coarse calcifications in the outer right breast are again noted and appear stable. No discrete mass or malignant-appearing microcalcifications are seen. Axillae are unremarkable. IMPRESSION: BI-RADS Category 2 No mammographic features suspicious for malignancy are identified. ACR BI-RADS Category 2: Benign findings. Result letter will be mailed to the patient. Note: At least 10% of breast cancer is not imaged by mammography. Dictated by: Dictated on workstation # [id number]
== END ==
LOC: RAD 11:15
PROVIDERS: ATTEND Nurse Practitioner Family
DX: Z12.31 Encounter for screening mammogram for malignant neoplasm of breast (principal)
CPT/HCPCS: 77063; 77067

== ENCOUNTER → 2022-08-25 | Outpatient (CLI) | payer BC ==
[~2022-08-25] MED LIST changes: +POTA10CA44 PO
== END ==
LOC: CARD 10:30
PROVIDERS: ATTEND Nurse Practitioner Family
DX: R01.1 Cardiac murmur, unspecified (principal)
CPT/HCPCS: 93306